=== PATIENT | male | born 1930 | race Hispanic/Latino ===

== ENCOUNTER 2017-04-14 09:20 | Outpatient (CLI) | payer MEDICARE ==
[2017-04-14 12:32] LABS: #Basophils 0.1 thou/uL (0.0-0.2); #Eosinphils 0.2 thou/uL (0.0-0.7); #Lymphocytes 1.2 thou/uL (1.20-3.40); #Monocytes 0.6 thou/uL (0.11-0.59); #Neutrophils 4.5 thou/uL (1.40-6.50); %Basophils 1.3 % (0.0-1.0); %Eosinophils 3.6 % (0.0-10.0); %Lymphocytes 17.8 % (21.0-51.0); %Monocytes 8.4 % (0.0-10.0); %Neutrophils 68.9 % (42.0-75.0); Hemoglobin 13.8 g/dL (14.0-18.0); Mean Corpuscular HGB CONC 33.8 g/dL (32.0-36.0); Mean Corpuscular Hemoglobin 32.5 pg (27.0-31.0); Mean Corpuscular Volume 96.4 fl (80.0-94.0); Mean Platelet Volume 9.3 fL (7.4-10.4); Platelet Count 144 thou/uL (130-400); RBC Distribution Width 12.6 % (11.5-14.5); Red Blood Cell (RBC) Count 4.25 mill/uL (4.70-6.10); White Blood Cell (WBC) Count 6.5 thou/uL (4.8-10.8)
[2017-04-14 13:03] LABS: ALT (SGPT) 15 U/L (8-55); AST (SGOT) 26 U/L (5-34); Albumin 3.4 g/dL (3.4-4.8); Alkaline Phosphatase 112 U/L (40-150); Anion Gap 15 mmol/L (10-20); BUN (Urea Nitrogen) 12 mg/dL (8.4-25.7); Bilirubin, Direct 0.2 mg/dL (0.1-0.3); Bilirubin, Total 0.4 mg/dL (0.2-1.2); Calc. Creatinine Clearance 0 mL/min (70-130); Calcium 8.4 mg/dL (7.8-10.44); Carbon Dioxide 24 mmol/L (23-31); Cardiac Risk 2.8 (Less than 4.5); Chloride 107 mmol/L (98-107); Cholesterol 132 mg/dl (< 200 Desired); Estimated GFR-MDRD 79; Glucose 89 mg/dL (83-110); HDL Cholesterol 47 mg/dL (>60 Neg Risk); LDL Cholesterol, Calculated 70 mg/dL; Potassium 3.6 mmol/L (3.5-5.1); Protein, Total 6.8 g/dL (5.8-8.1); Sodium 142 mmol/L (136-145); Triglycerides 74 mg/dL (Less than 150)
[2017-04-14 13:33] LABS: Hemoglobin A1c 5.6 % (4.0-6.0)
== END 2017-04-14 09:21 | disposition home or self-care (01) ==
LOC: NAVSJIPCSP 09:20
PROVIDERS: ATTEND Family Medicine
DX: E78.4 Other hyperlipidemia (principal); E11.9 Type 2 diabetes mellitus without complications; I10 Essential (primary) hypertension; Z79.899 Other long term (current) drug therapy
CPT/HCPCS: 36415; 80048; 80061; 80076; 83036; 84443; 85025

== ENCOUNTER 2018-09-07 21:44 | Inpatient (IN) | payer MEDICARE ==
[2018-09-07 22:00] VITALS: BMI 28.2
[2018-09-07] MEDS: Benzonatate 100 MG CAP PO PRN (23:24)
[2018-09-07] MEDS: Acetaminophen 325 MG TAB PO PRN (23:25)
[2018-09-08 05:23] LABS: #Basophils 0.1 thou/uL (0.0-0.2); #Eosinphils 0.3 thou/uL (0.0-0.7); #Lymphocytes 1.3 thou/uL (1.20-3.40); #Monocytes 0.6 thou/uL (0.11-0.59); #Neutrophils 3.5 thou/uL (1.40-6.50); %Basophils 1.6 % (0.0-1.0); %Eosinophils 4.8 % (0.0-10.0); %Lymphocytes 22.4 % (21.0-51.0); %Monocytes 10.4 % (0.0-10.0); %Neutrophils 60.8 % (42.0-75.0); Hemoglobin 11.6 g/dL (14.0-18.0); Mean Corpuscular HGB CONC 32.3 g/dL (32.0-36.0); Mean Corpuscular Hemoglobin 32.5 pg (27.0-31.0); Mean Platelet Volume 8.3 fL (7.4-10.4); Platelet Count 161 thou/uL (130-400); RBC Distribution Width 13.2 % (11.5-14.5); Red Blood Cell (RBC) Count 3.55 mill/uL (4.70-6.10); White Blood Cell (WBC) Count 5.8 thou/uL (4.8-10.8)
[2018-09-08 05:38] LABS: ALT (SGPT) 13 U/L (8-55); AST (SGOT) 21 U/L (5-34); Albumin 2.5 g/dL (3.4-4.8); Alkaline Phosphatase 78 U/L (40-150); Anion Gap 8 mmol/L (10-20); BUN (Urea Nitrogen) 13 mg/dL (8.4-25.7); Bilirubin, Total 0.5 mg/dL (0.2-1.2); Calc. Creatinine Clearance 60 mL/min (70-130); Calcium 8.3 mg/dL (7.8-10.44); Carbon Dioxide 25 mmol/L (23-31); Chloride 111 mmol/L (98-107); Estimated GFR-MDRD 69; Glucose 93 mg/dL (83-110); Potassium 3.5 mmol/L (3.5-5.1); Protein, Total 5.5 g/dL (5.8-8.1); Sodium 140 mmol/L (136-145)
[2018-09-08] MEDS ORDERED: guaiFENesin/DM ER PO SCH ×2 (09:00)
[2018-09-08] MEDS: Lisinopril 10 MG TAB PO SCH (09:02)
[2018-09-08] MEDS: NIFEdipine XL 30 MG TAB PO SCH (09:03)
[2018-09-08] MEDS: Ipratropium Bromide 0.06% Nasal Inhaler 15ml EA NARE SCH ×4 (10:43→21:05)
[2018-09-08] MEDS: Benzonatate 100 MG CAP PO PRN (10:44)
--- NOTE | 2018-09-08 13:22 | HP ---
DATE OF ADMISSION: 09/07/2018 HISTORY OF PRESENT ILLNESS: Mr. Zarate is an 88-year-old white male that presented to [facility] with right-sided weakness suspicious for a stroke. The patient had CTs and MRIs which w ere basically revealed multiple small hemorrhagic strokes in the distant past, but also a new small a cute basal ganglion and lateral thalamic bleed. He also has a history of hypertension which was sign ificantly elevated, most likely because of noncompliance with medications. He also has hyperlipidemi a. He was brought to the hospital, admitted and stabilized. He was started on nifedipine 60 mg dinorah y with the intention to keep his systolic blood pressure 160s or below. He is also started on statin drug. It is noted that he was on 2 drug blood pressure therapy, statin drug and Namenda for my offi ce back in April, but at that time, he has been off all of his medicines for at least 3 weeks because he is very noncompliant. Eventually stabilized and felt that he would benefit from inpatient PT and OT, so he was therefore transferred to [facility] for PT/OT to increase his strength and stamina. PAST MEDICAL HISTORY: Positive for: 1. Hypertension. 2. Hyperlipidemia. 3. Stroke x4 in 2012. 4. Brain aneurysm x2. 5. Dementia. 6. Osteoarthritis. 7. Diabetes mellitus. PAST SURGICAL HISTORY: Positive for cataract surgery. FAMILY HISTORY: Reveals patient's father at age 80 of brain cancer diagnosed with a stroke. Villa tubbs's mother at age 80 with pancreatic cancer and diagnosed with diabetes. Patient has deceas ed brother who with liver cancer and also had diabetes. Patient has 2 sons and 1 daughter that are healthy. Patient does not smoke. Patient does not drink coffee, but occasionally ice tea and sodas. SOCIAL HISTORY: Patient retired and . The patient lives with his spouse. ALLERGIES: The patient is allergic to SULFA. PAST SURGICAL HISTORY: He has had strokes in 2008, 2009. 2011 and 2015. He had a brain tumor 2009. REVIEW OF SYSTEMS: The patient denies fever or chills. He complains of fatigue. Denies any headach e. Denies any change in his eyes or hearing. Patient denies any respiratory problems except occasional cough. Patient denies chest pain, orthopnea, or claudication. Patient denies hematochezia, change in bowel habit emesis, black or bloody tarry stools. Patient den ies nocturia, urgency, frequency. Patient denies symptoms. PHYSICAL EXAMINATION: GENERAL: This is a well-developed, well-nourished, somewhat obese white male in no apparent distress at this time. HEENT: Reveals normocephalic, nontraumatic cranium. Pupils are equally round. Extraocular movement s are intact. Nose and throat are slightly dry, but clear. NECK: Supple, without masses, nodes or bruits. CHEST: Clear to auscultation. No rales, no rhonchi, no wheezes are heard. HEART: Reveals a regular rate and rhythm without murmurs, gallops or rubs. ABDOMEN: Obese, soft, nontender, without organomegaly, normal bowel sounds are noted in all 4 quadra nts. No rebound or guarding is noted. : Deferred. EXTREMITIES: Reveal no clubbing, cyanosis or edema. NEUROLOGIC: The patient has fairly good reflexes bilateral. His upper body strength and lower body strength are fair. He has more generalized weakness. PRESENT MEDICATIONS: 1. Tylenol 650 p.r.n. 2. Ipratropium/Atrovent nasal spray 2 sprays each nostril t.i.d. 3. Tessalon Perles 200 mg t.i.d. p.r.n. cough. 4. Lisinopril 10 mg daily. 5. Pravastatin 80 mg daily. 6. Nifedipine 60 mg daily. 7. Guaifenesin DM ER q.12h. ASSESSMENT: 1. Status post stroke. 2. History of multiple strokes and transient ischemic attacks in the past. 3. Hypertension, out of control, most likely due to noncompliance with the patient last seen in [facility] in April and not been taking his medicines for 3 weeks. 4. Diabetes, diet and exercise controlled. 5. Hyperlipidemia. The patient is supposed to be on pravastatin. 6. Osteoarthritis, mainly of both knees. 7. Allergic rhinitis. The patient is presently on Flonase. 8. Generalized arthritis. The patient is on Meloxicam 15 mg daily. 9. Memory loss. The patient has early dementia, but is not taking his Namenda. 10. Mild cognitive impairment. The patient has prior clock scanned into the office. He has stopped his Aricept and Namenda in the past. 11. Insomnia. The patient takes melatonin 10 mg. PLAN: 1. The patient is admitted to [facility] for physical therapy, occupational therapy to increase his strength and stamina. 2. We will continue his present medications. 3. We will encourage him and his family to get some type of mechanism in order, so he does not miss any of his medicines. I did recommend that in moving with someone or someone moving with him to give his medications twice a day. Otherwise, patient seems to be doing well and has no apparent distress at this time.
[2018-09-08] MEDS: Acetaminophen 325 MG TAB PO PRN (21:05)
[2018-09-08] MEDS: guaiFENesin ER 600 MG TAB PO SCH (21:05)
[2018-09-08] MEDS: Atorvastatin Calcium 20 MG TAB PO SCH (21:05)
[2018-09-09] MEDS: Ipratropium Bromide 0.06% Nasal Inhaler 15ml EA NARE SCH ×3 (09:09→20:32)
[2018-09-09] MEDS: guaiFENesin ER 600 MG TAB PO SCH ×2 (09:10→20:33)
[2018-09-09] MEDS: Lisinopril 10 MG TAB PO SCH (09:11)
[2018-09-09] MEDS: NIFEdipine XL 30 MG TAB PO SCH (09:12)
[2018-09-09] MEDS: Benzonatate 100 MG CAP PO PRN (14:45)
[2018-09-09] MEDS: Chloraseptic Spray 180 ml Bottle PO PRN (16:03)
--- NOTE | 2018-09-09 16:13 | PRG ---
DATE OF SERVICE: 09/09/2018 SUBJECTIVE: Mr. Zarate is doing well. He does have some dysphasia. He is also having some sore th roat and cough. His family is in the room. OBJECTIVE: VITAL SIGNS: He is afebrile, heart rate is 77, respirations 18, oxygen saturation 96% on room air, b lood pressure 127/60. CARDIOVASCULAR: S1, S2 plus. RESPIRATORY: Normal vesicular breath sounds. ABDOMEN: Soft, nontender, bowel sounds heard in all quadrants. EXTREMITIES: Without cyanosis or clubbing. CENTRAL NERVOUS SYSTEM: Improving deficits from his recent CVA. IMPRESSION: 1. Hypertension. He has a longstanding history of noncompliance. 2. Dyslipidemia. 3. Multiple cerebrovascular accidents. 4. Dementia. 5. Osteoarthritis. PLAN: 1. Start him on some melatonin for insomnia. 2. Cepacol spray for his sore throat. 3. Continue current medications. 4. Continue PT, OT evaluate and treat. 5. DVT and stress ulcer prophylaxis. 6. Decubitus precautions. 7. Discussed with patient and family in detail and all questions answered.
[2018-09-09] MEDS: Acetaminophen 325 MG TAB PO PRN (19:18)
[2018-09-09] MEDS: Atorvastatin Calcium 20 MG TAB PO SCH (20:33)
[2018-09-09] MEDS: Melatonin 3 MG TAB PO PRN (20:33)
[2018-09-10] MEDS: Acetaminophen 325 MG TAB PO PRN ×4 (03:45→20:31)
[2018-09-10] MEDS: NIFEdipine XL 30 MG TAB PO SCH (08:21)
[2018-09-10] MEDS: Ipratropium Bromide 0.06% Nasal Inhaler 15ml EA NARE SCH ×3 (08:21→20:28)
[2018-09-10] MEDS: Lisinopril 10 MG TAB PO SCH (08:22)
[2018-09-10] MEDS: guaiFENesin ER 600 MG TAB PO SCH ×2 (08:22→20:30)
[2018-09-10] MEDS: Benzonatate 100 MG CAP PO PRN (12:25)
--- NOTE | 2018-09-10 15:30 | PRG ---
DATE OF SERVICE: 09/10/2018 SUBJECTIVE: Mr. Zarate is sleeping but arousable. He apparently is having some back pain and he mccann s been using this Icy Hot rub. Continues to have some mild . OBJECTIVE: VITAL SIGNS: He is afebrile, heart rate 86, respirations 18, blood pressure 143/65. CARDIOVASCULAR: S1, S2 plus. RESPIRATORY SYSTEM: Normal vesicular breath sounds. ABDOMEN: Soft, nontender, bowel sounds heard in all quadrants. EXTREMITIES: Without cyanosis or clubbing. CENTRAL NERVOUS SYSTEM: Deficits from his recent CVA. IMPRESSION: 1. Diabetes mellitus, apparently diet controlled. 2. Hypertension. Would favor permissive hypertension given his new cerebrovascular accident. 3. Dyslipidemia. 4. History of multiple cerebrovascular accidents. 5. Dementia. 6. Osteoarthritis. 7. Longstanding history of noncompliance. PLAN: 1. Okay to use his own Icy Hot. 2. Continue current medications. 3. PT, OT, and Speech to evaluate and treat. 4. DVT and stress ulcer prophylaxis. 5. Decubitus precautions. 6. Monitor laboratory values. 7. Nutritional support.
[2018-09-10] MEDS: Melatonin 3 MG TAB PO PRN (20:30)
[2018-09-10] MEDS: Atorvastatin Calcium 20 MG TAB PO SCH (20:30)
[2018-09-11] MEDS: Ipratropium Bromide 0.06% Nasal Inhaler 15ml EA NARE SCH ×3 (08:14→20:31)
[2018-09-11] MEDS: guaiFENesin ER 600 MG TAB PO SCH ×2 (08:15→20:32)
[2018-09-11] MEDS: NIFEdipine XL 30 MG TAB PO SCH (08:15)
[2018-09-11] MEDS: Lisinopril 10 MG TAB PO SCH (08:25)
--- NOTE | 2018-09-11 11:52 | PRG ---
DATE OF SERVICE: 09/11/2018 HISTORY OF PRESENT ILLNESS: Mr. Borden is a very pleasant 88-year-old male that presented to emergency room with right-sided weakness suspicion for stroke. He had a CT and MRI which basicall y revealed multiple small hemorrhagic strokes. He can count a total of 5 strokes, but this has been the worse so far. This has effected the basal ganglia and lateral thalamic bleed. He also has a his tory of hypertension and has been noncompliant with medication. He was brought to emergency room, st abilized and started on nifedipine 60 mg with intention keep his systolic blood pressure 160s or belo w. He was also started on a statin drug. He is on Namenda. Unfortunately, he has been off of his m edicine for at least 3 weeks because he is very noncompliant. The patient's son is in the room, we did definitely tell him that his dad should never drive again be cause he has had 5 strokes. He may have a stroke while he is driving and hurt himself or hurt someon e else. The son said they can take care of that problem. PHYSICAL EXAMINATION: VITAL SIGNS: Today reveal blood pressure 140/68, pulse 79-85, respirations 16-20, O2 sat 93-96% on r oom air, T-max 98.3. GENERAL: This is a well-developed, well-nourished, very pleasant, slightly obese male in no apparent distress at this time. HEENT: Reveals normocephalic, nontraumatic cranium. The pupils are equally round and reactive. Ext raocular movements are intact. Nose and throat are slightly dry, but clear. NECK: Supple, without mass, nodes or bruits. CHEST: Clear to auscultation. No rales, rhonchi or wheezes are heard. CARDIOVASCULAR: Reveals a regular rate and rhythm without murmurs, gallops or rubs. ABDOMEN: Obese, soft, nontender, without organomegaly, normal bowel sounds are noted in all 4 quadra nts. No rebound or guarding is noted. : Deferred. EXTREMITIES: Reveal no clubbing, cyanosis or edema. NEUROLOGIC: The patient is oriented to person, place and time. His speech is somewhat slurred. IMPRESSION: 1. Status post stroke (this is his 5th stroke). 2. Hypertension, out of control, much improved now. 3. Diabetes, diet and exercise controlled. 4. Hyperlipidemia. 5. Osteoarthritis, both knees. 6. Allergic rhinitis. 7. Generalized arthritis. 8. Memory loss with early dementia. The patient is not taking his Namenda. 9. Mild cognitive impairment secondary to his dementia. 10. Insomnia. 11. Generalized weakness. PLAN: 1. The patient was admitted to [facility] for physical therapy, occupational therapy , and speech therapy. 2. Continue present medications. 3. Continue to monitor the patient's blood pressure, keep it less than 160 systolic. 4. Continue to monitor the patient's sugars. 5. Stress ulcer prophylaxis. 6. Decubitus precautions. 7. Deep venous thrombosis prophylaxis per primary service. 8. Physical therapy and occupational therapy, and speech therapy.
[2018-09-11] MEDS: Chloraseptic Spray 180 ml Bottle PO PRN (15:01)
[2018-09-11] MEDS: Acetaminophen 325 MG TAB PO PRN (15:03)
[2018-09-11] MEDS: Benzonatate 100 MG CAP PO PRN (15:04)
[2018-09-11] MEDS: Atorvastatin Calcium 20 MG TAB PO SCH (20:32)
[2018-09-11] MEDS: Melatonin 3 MG TAB PO PRN (20:33)
[2018-09-12] MEDS: NIFEdipine XL 30 MG TAB PO SCH (09:18)
[2018-09-12] MEDS: guaiFENesin ER 600 MG TAB PO SCH ×2 (09:18→20:25)
[2018-09-12] MEDS: Lisinopril 10 MG TAB PO SCH (09:18)
[2018-09-12] MEDS: Ipratropium Bromide 0.06% Nasal Inhaler 15ml EA NARE SCH ×3 (09:18→20:24)
[2018-09-12] MEDS ORDERED: Milk Of Magnesia 30 ML UDCUP PO PRN (10:20)
[2018-09-12] MEDS: Milk Of Magnesia 30 ML UDCUP PO PRN (11:45)
[2018-09-12] MEDS: Benzonatate 100 MG CAP PO PRN (11:45)
--- NOTE | 2018-09-12 14:03 | PRG ---
DATE OF SERVICE: 09/12/2018 SUBJECTIVE: Mr. Zarate is a very pleasant 88-year-old male that presented to the emergency room with right-sided weakness suspicious for stroke. He had a CT and MRI, which confirmed that. Nikhil al has multiple small hemorrhagic strokes and the stroke was basically at the basal ganglia and latera l thalamic area. He also has a history of hypertension and has been noncompliant with medication. T he last time I saw him several months ago, he had not taken his blood pressure medications for over 3 weeks. He was brought to the emergency room, he was hypertensive and he was started on nifedipine w ith intention of keeping his systolic blood pressure less than 160s. He also started on statin drug. Unfortunately, he has been off his medications again for about 3 weeks before he had a stroke. The patient's daughter is in the room this morning and yesterday, I spoke with the son. She was conc erned because he has had 5 strokes and my recommendation was that he not drive anymore. 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 The daughter was very concerned because she said that wo uld like stab him in the heart. I just told her that it does not necessarily have to be a problem wi th taking his license away, he can still keep that as his ID, but we just do not need him driving. Nikhil al states he had 5 strokes. He can have a stroke and danger his life or someone else's . LABORATORY: No labs were done today. OBJECTIVE: VITAL SIGNS: This morning reveal blood pressure 142/67, pulse 85, respirations 18, O2 sat 94% on quang m air, T-max 97.4. GENERAL: This is a well-developed, well-nourished, somewhat obese male in no apparent distr ess at this time. HEENT: Reveals normocephalic, nontraumatic cranium. The pupils are equally round, reactive. The ex traocular movements intact. Nose and throat are slightly dry, but clear. NECK: Supple, without mass, nodes or bruits. LUNGS: Chest is clear to auscultation. No rales, rhonchi, wheezes or cough is heard. CARDIOVASCULAR: Reveals a regular rate and rhythm without murmurs, gallops or rubs. ABDOMEN: Obese, soft, nontender, without organomegaly. Normal bowel sounds are noted in all 4 quadr ants. No rebound or guarding is noted. GENITOURINARY: Deferred at this time. EXTREMITIES: Reveal no clubbing, cyanosis or edema. NEUROLOGIC: The patient is oriented to person, place, and time. His speech is slowly improving. He states he is very tired and sleepy today, but his daughter states he slept well all last night. IMPRESSION: 1. Status post stroke and this is his fifth stroke. 2. Hypertension, out of control, but much improved since he is back on his medications. 3. Diabetes, which is diet and exercise control which is stable. 4. Hyperlipidemia. 5. Osteoarthritis of both knees. 6. Allergic rhinitis. 7. Memory loss with early dementia. The patient is again not been taking his Namenda. 8. Mild cognitive impairment secondary to dementia. 9. Insomnia. 10. Generalized weakness. PLAN: 1. The patient was transferred to [facility] for physical therapy, heliotherapist apy, and speech therapy, which he is participating in fairly well. 2. Continue his present medications. 3. Continue to monitor his blood pressure closely and keep a systolic less than 160. 4. Continue to monitor the patient's blood sugars, which have been good. 5. Stress ulcer prophylaxis. 6. Decubitus precautions. 7. Deep venous thrombosis prophylaxis. 8. Continue PT, OT, and speech therapy.
[2018-09-12] MEDS: Atorvastatin Calcium 20 MG TAB PO SCH (20:25)
[2018-09-12] MEDS: Melatonin 3 MG TAB PO PRN (23:06)
[2018-09-13] MEDS: Ipratropium Bromide 0.06% Nasal Inhaler 15ml EA NARE SCH ×3 (08:26→20:31)
[2018-09-13] MEDS: Polyethylene Glycol 3350 17 GM Packet PO SCH (08:26)
[2018-09-13] MEDS: NIFEdipine XL 30 MG TAB PO SCH (08:27)
[2018-09-13] MEDS: guaiFENesin ER 600 MG TAB PO SCH ×2 (08:28→20:32)
[2018-09-13] MEDS: Lisinopril 10 MG TAB PO SCH (08:28)
[2018-09-13] MEDS ORDERED: Melatonin 3 MG TAB PO PRN (09:46)
--- NOTE | 2018-09-13 10:30 | PRG ---
DATE OF SERVICE: 09/13/2018 DATE OF ADMISSION: 09/07/2018 HISTORY OF PRESENT ILLNESS: Mr. Zarate is a very pleasant 88-year-old male that presented to the emergency room with a stroke. It was noted to be hemorrhagic stroke that got his basal gangli a in the lateral thalamic area. He was stabilized and eventually transferred to [facility] for PT and OT. His daughter is in the room stating he did not sleep well last night, because he did not get his medi cation early enough. It also was not very strong. LABORATORY DATA: No labs were done today. PHYSICAL EXAMINATION: VITAL SIGNS: Revealed blood pressure this morning 132/63, pulse 78-85, respirations 18-19, O2 sat 93 %-95%, T-max 98.6. GENERAL: This is a well-developed, well-nourished, very pleasant, obese male in no apparent distress at this time. HEENT: Reveals normocephalic, nontraumatic cranium. Pupils are equally round. Nose and throat are dry. NECK: Supple, without mass, nodes, or bruits. CHEST: Clear to auscultation. No rales, rhonchi, or wheezes are heard. No cough is noted. HEART: Reveals a regular rate and rhythm without murmurs, gallops, or rubs. ABDOMEN: Soft, nontender, without organomegaly, normal bowel sounds are noted. No rebound or guardi ng is noted. EXAM: Deferred. EXTREMITIES: Reveal no clubbing, cyanosis, or edema. NEUROLOGIC: Patient is oriented to person, place, and time. Speech still is slow. IMPRESSION: 1. Status post stroke. 2. Hypertension, much improved. 3. Diabetes, stable. 4. Hyperlipidemia. 5. Osteoarthritis. 6. Allergic rhinitis. 7. Memory loss with early dementia. 8. Mild cognitive impairment. 9. Insomnia. 10. Generalized weakness. PLAN: 1. Transfer the patient to [facility] for PT and OT and speech therapy. He is participating fairly well. 2. Continue present medications. 3. Increase melatonin if needed. 4. Monitor the patient's blood pressure. 5. Monitor the patient's blood sugars. 6. Stress ulcer prophylaxis. 7. Decubitus precautions. 8. Deep venous thrombosis prophylaxis. 9. Continue PT and OT and speech therapy.
[2018-09-13] MEDS: Benzonatate 100 MG CAP PO PRN (19:07)
[2018-09-13] MEDS: Atorvastatin Calcium 20 MG TAB PO SCH (20:32)
[2018-09-13] MEDS: Acetaminophen 325 MG TAB PO PRN (20:32)
[2018-09-14] MEDS: Polyethylene Glycol 3350 17 GM Packet PO SCH (08:21)
[2018-09-14] MEDS: Lisinopril 10 MG TAB PO SCH (08:21)
[2018-09-14] MEDS: NIFEdipine XL 30 MG TAB PO SCH (08:21)
[2018-09-14] MEDS: Ipratropium Bromide 0.06% Nasal Inhaler 15ml EA NARE SCH ×3 (08:21→20:48)
[2018-09-14] MEDS: guaiFENesin ER 600 MG TAB PO SCH ×2 (08:22→20:49)
[2018-09-14] MEDS: Acetaminophen 325 MG TAB PO PRN ×2 (09:21→20:49)
[2018-09-14] MEDS: Chloraseptic Spray 180 ml Bottle PO PRN (09:21)
[2018-09-14] MEDS: Atorvastatin Calcium 20 MG TAB PO SCH (20:49)
[2018-09-15] MEDS: Acetaminophen 325 MG TAB PO PRN (01:18)
[2018-09-15] MEDS: Ipratropium Bromide 0.06% Nasal Inhaler 15ml EA NARE SCH ×3 (08:36→20:58)
[2018-09-15] MEDS: NIFEdipine XL 30 MG TAB PO SCH (08:36)
[2018-09-15] MEDS: guaiFENesin ER 600 MG TAB PO SCH ×2 (08:37→20:57)
[2018-09-15] MEDS: Lisinopril 20 MG TAB PO SCH (08:38)
[2018-09-15] MEDS: Polyethylene Glycol 3350 17 GM Packet PO SCH (08:41)
--- NOTE | 2018-09-15 18:54 | PRG ---
DATE OF SERVICE: 09/14/2018 DATE OF ADMISSION: 09/07/2018 HISTORY OF PRESENT ILLNESS: Mr. Zarate is a very pleasant 88-year-old male that presented to emergency room with a stroke. It was noted to be hemorrhagic stroke that was in his basal ganglia and the lateral thalamic area. Eventually was stabilized and then he was transferred to [facility] where he could receive physical therapy and occupational therapy, and speech therapy. Patient's daughter was in the room. Again, I did answer all of her questions. PHYSICAL EXAMINATION: VITAL SIGNS: Today reveal blood pressure was 152/67, pulse 81, respirations 18, O2 sat 95%-97% on ro om air, T-max 97.7. GENERAL: This is a well-developed, well-nourished, very pleasant white male in no apparent distress at this time. HEENT: Reveals normocephalic, nontraumatic cranium. Pupils equal, round, and reactive. Nose and th roat are moist today. NECK: Supple, without mass, nodes, bruits. CHEST: Clear to auscultation. No rales, rhonchi, wheezes or cough is heard. CARDIOVASCULAR: Reveals a regular rate and rhythm without murmurs, gallops or rubs. ABDOMEN: Obese, soft, nontender, without organomegaly. Normal bowel sounds are noted in all 4 quadr ants. No rebound or guarding is noted. GENITOURINARY: Deferred. EXTREMITIES: Reveal no clubbing, cyanosis or edema. NEUROLOGIC: The patient is oriented to person, place, and time. IMPRESSION: 1. Status post cerebrovascular accident. 2. Hypertension. 3. Diabetes. 4. Hyperlipidemia. 5. Osteoarthritis. 6. Allergic rhinitis. 7. Early dementia with memory loss. 8. Mild cognitive impairment. 9. Insomnia. 10. Generalized weakness. PLAN: 1. Continue speech therapy. 2. Continue physical therapy and occupational therapy. 3. Continue present meds. 4. Patient wanted his melatonin stops, we stopped. 5. Monitor the patient's blood pressure. 6. Continue to monitor the patient diabetes with Accu-Cheks a.c. and at bedtime. 7. Moderate the patient's stress ulcer prophylaxis. 8. Decubitus precautions. 9. DVT prophylaxis. 10. The patient to be discharged most likely next Tuesday.
--- NOTE | 2018-09-15 19:28 | PRG ---
DATE OF SERVICE: 09/15/2018 DATE OF ADMISSION: 09/07/2018 HISTORY OF PRESENT ILLNESS: The patient is an 88-year-old male that unfortunately was broug ht to the emergency room and found to have a basal ganglia and lateral flap thalamic stroke. He was stabilized at [facility], eventually transferred to [facility] in [facility] or physical therapy and occupational therapy. The patient's is in room today and states he is doing well. The only thing she is concerned abo ut is occasional swelling in his legs. I did talk to the patient's son this morning at [facility]. His son prefers outpatient physical therapy at the [facility] area. If that is what they want then they will not qualify for the home health to come by their house. PHYSICAL EXAMINATION: VITAL SIGNS: Blood pressure this morning 152/67, pulse 81, respirations 18, O2 sat 95%-97% on room a ir, T-max 97.7. GENERAL: This is a well-developed, well-nourished, morbidly obese male in no apparent distr ess at this time. HEENT: Reveals normocephalic, nontraumatic cranium. The pupils are equally round and reactive. Ext raocular movements intact. Nose and throat are moist again today. NECK: Supple, without masses, nodes or bruits. No jugular venous distention is noted today. LUNGS: Chest is clear to auscultation. No rales, no rhonchi, no wheezes are heard. No cough is not ed. HEART: Reveals a regular rate and rhythm without murmurs, gallops or rubs. ABDOMEN: Soft, nontender, without organomegaly. Normal bowel sounds are noted in all 4 quadrants. No rebound or guarding is noted. GENITOURINARY: Deferred. EXTREMITIES: Reveal no clubbing, cyanosis with only trace edema at this time. NEUROLOGIC: The patient oriented to person, place, time, and is actually speech is much improved ove r the last 2 days. IMPRESSION: 1. Status post cerebrovascular accident of the basal and lateral thalamic area. 2. Hypertension. 3. Diabetes. 4. Hyperlipidemia. 5. Osteoarthritis. 6. Allergic rhinitis. 7. Early dementia with memory loss. 8. Mild cognitive impairment. 9. Insomnia. 10. Generalized weakness. PLAN: 1. Continue present medications. 2. Melatonin will be restarted since the family is asking for that tonight and we will start him on 12 mg. 3. Continue to monitor the patient's blood pressure. 4. Continue to monitor the patient's blood sugars. 5. Stress ulcer prophylaxis. 6. Decubitus precautions. 7. Continue physical therapy and occupational therapy and speech therapy.
[2018-09-15] MEDS: Melatonin 3 MG TAB PO PRN (20:57)
[2018-09-15] MEDS: Atorvastatin Calcium 20 MG TAB PO SCH (20:57)
--- NOTE | 2018-09-16 08:44 | PRG ---
DATE OF SERVICE: 09/16/2018 DATE OF ADMISSION: 09/07/2018 SUBJECTIVE: Mr. Zarate is a well-developed, well-nourished 88-year-old male who was vickie t to the emergency room and found to have a basal ganglia and left lateral thalamic stroke. He was a dmitted to the stroke unit. Eventually stabilized and transferred to [place] for continued physic al therapy and occupational therapy. The patient's daughter is in the room when he seems to be doing very well, his discharge date is . I did talk with the patient's son yesterday and they are trying to decide between home health an d outpatient physical therapy. His opinion was that physical therapy would do a little better becaus e they could get him out of the house and after he finished therapy in 4-6 weeks, [facility] could [facility] to [facility]. OBJECTIVE: VITAL SIGNS: Today reveal blood pressure last night 150/67, pulse 87-90, respirations 18, O2 saturat ion 98% on room air, T-max 96.5. GENERAL: This is a well-developed, well-nourished, slightly obese male, presently sleeping, aroused, states he is doing fine and has no complaints. HEENT: Reveals normocephalic, nontraumatic cranium. Nose and throat are slightly dry. NECK: Supple, without mass, nodes or bruits. LUNGS: Chest is clear to auscultation. No rales, rhonchi, wheezes or cough is heard. CARDIOVASCULAR: Heart reveals a regular rate and rhythm without murmurs, gallops or rubs. ABDOMEN: Obese, soft, nontender, without organomegaly. Normal bowel sounds are noted. No rebound o r guarding is noted. : Deferred. EXTREMITIES: Reveal no clubbing, cyanosis, still with only trace edema occasionally that comes and g oes. NEUROLOGIC: The patient is oriented to person, place and time. Speech is slowly better. IMPRESSION: 1. Status post cerebrovascular accident with basal ganglion and lateral thalamic area infarcts. 2. Hypertension. 3. Diabetes, type 2, controlled on diet and exercise. 4. Hyperlipidemia. 5. Osteoarthritis. 6. Allergic rhinitis. 7. Early dementia with recent memory loss. 8. Mild cognitive impairment. 9. Insomnia. 10. Generalized weakness. PLAN: 1. The patient was started on melatonin again last night, seems to be doing well with that. 2. Continue to monitor the patient's blood pressure closely. 3. Continue to monitor the patient's diabetes with Accu-Cheks randomly. 4. Stress ulcer prophylaxis. 5. Decubitus precautions. 6. Continue physical therapy and occupational therapy. 7. Continue speech therapy.
[2018-09-16] MEDS: Lisinopril 20 MG TAB PO SCH (09:32)
[2018-09-16] MEDS: Ipratropium Bromide 0.06% Nasal Inhaler 15ml EA NARE SCH ×3 (09:32→20:32)
[2018-09-16] MEDS: Polyethylene Glycol 3350 17 GM Packet PO SCH (09:32)
[2018-09-16] MEDS: Benzonatate 100 MG CAP PO PRN (09:32)
[2018-09-16] MEDS: guaiFENesin ER 600 MG TAB PO SCH ×2 (09:33→20:33)
[2018-09-16] MEDS: NIFEdipine XL 30 MG TAB PO SCH (09:33)
[2018-09-16] MEDS: Chloraseptic Spray 180 ml Bottle PO PRN (14:43)
[2018-09-16] MEDS: Melatonin 3 MG TAB PO PRN (20:33)
[2018-09-16] MEDS: Atorvastatin Calcium 20 MG TAB PO SCH (20:33)
--- NOTE | 2018-09-17 06:58 | PRG ---
DATE OF SERVICE: 09/17/2018. SUBJECTIVE: Mr. Zarate is a very pleasant 88-year-old male that was found to have a stroke when he was brought to the emergency room. The stroke was at basal ganglia and the left lateral elisabeth lamic stroke. He was admitted to the stroke unit, eventually stabilized and was now transferred to [facility] for physical therapy and occupational therapy. The patient states he is doing well today. While I was in the room, he did get up by himself and go to the bathroom without his walker. He gradually is getting stronger and his balance is much improve d. He is scheduled to be discharged on Tuesday. OBJECTIVE: VITAL SIGNS: Today reveal blood pressure 155/67, pulse 88-91, respirations 20, O2 sat 95% on room ai r, T-max 97.3. GENERAL: This is a well-developed, well-nourished, slightly obese male in no apparent distr ess at this time. HEENT: Reveals normocephalic, nontraumatic cranium. Pupils equal, round, and reactive. Extraocular movements intact. Nose and throat are slightly dry. NECK: Supple, without mass, nodes or bruits. LUNGS: Chest is clear to auscultation. No rales, rhonchi or wheezes are noted. No cough is noted. HEART: Reveals a regular rate and rhythm. No murmurs, gallops or rubs are noted. ABDOMEN: Soft, nontender, without organomegaly, normal bowel sounds are noted. No rebound or guardi ng is noted. GENITOURINARY: Deferred. EXTREMITIES: Reveal no clubbing, cyanosis with trace edema. Edema is noted to be equal and bilatera l. NEUROLOGIC: The patient is oriented to person, place and time. His speech continues to slowly get b june. He has no complaints this morning. IMPRESSION: 1. 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 2. Hypertension. 3. Diabetes type 2, controlled on diet and exercise. 4. Hyperlipidemia. 5. Osteoarthritis. 6. Early dementia with recent memory loss. 7. Allergic rhinitis. 8. Mild cognitive impairment. 9. Insomnia. 10. Generalized weakness. PLAN: 1. Continue melatonin as needed p.r.n. 2. Continue to monitor the patient's blood pressure closely. 3. Continue to monitor the patient's diabetes with Accu-Cheks randomly. 4. Stress ulcer prophylaxis. 5. Decubitus precautions. 6. Continue physical therapy and occupational therapy. 7. Continue speech therapy. 8. Plan to discharge on Tuesday.
[2018-09-17] MEDS: Ipratropium Bromide 0.06% Nasal Inhaler 15ml EA NARE SCH ×3 (08:55→20:28)
[2018-09-17] MEDS: Polyethylene Glycol 3350 17 GM Packet PO SCH (08:55)
[2018-09-17] MEDS: guaiFENesin ER 600 MG TAB PO SCH ×2 (08:56→20:28)
[2018-09-17] MEDS: NIFEdipine XL 30 MG TAB PO SCH (08:56)
[2018-09-17] MEDS: Milk Of Magnesia 30 ML UDCUP PO PRN (08:56)
[2018-09-17] MEDS: Benzonatate 100 MG CAP PO PRN (08:56)
[2018-09-17] MEDS: Lisinopril 20 MG TAB PO SCH (08:56)
[2018-09-17] MEDS: Atorvastatin Calcium 20 MG TAB PO SCH (20:28)
[2018-09-18] MEDS: Acetaminophen 325 MG TAB PO PRN (00:01)
[2018-09-18] MEDS: Melatonin 3 MG TAB PO PRN ×2 (00:01→20:38)
[2018-09-18 05:42] LABS: #Basophils 0.1 thou/uL (0.0-0.2); #Eosinphils 0.2 thou/uL (0.0-0.7); #Monocytes 0.6 thou/uL (0.11-0.59); #Neutrophils 2.8 thou/uL (1.40-6.50); %Basophils 1.6 % (0.0-1.0); %Lymphocytes 21.9 % (21.0-51.0); %Monocytes 11.8 % (0.0-10.0); %Neutrophils 59.7 % (42.0-75.0); Hemoglobin 11.4 g/dL (14.0-18.0); Mean Corpuscular HGB CONC 31.8 g/dL (32.0-36.0); Mean Corpuscular Hemoglobin 32.2 pg (27.0-31.0); Mean Platelet Volume 7.9 fL (7.4-10.4); Platelet Count 183 thou/uL (130-400); RBC Distribution Width 13.8 % (11.5-14.5); Red Blood Cell (RBC) Count 3.55 mill/uL (4.70-6.10); White Blood Cell (WBC) Count 4.6 thou/uL (4.8-10.8)
[2018-09-18 05:53] LABS: ALT (SGPT) 16 U/L (8-55); AST (SGOT) 26 U/L (5-34); Albumin 2.6 g/dL (3.4-4.8); Alkaline Phosphatase 78 U/L (40-150); Anion Gap 10 mmol/L (10-20); BUN (Urea Nitrogen) 15 mg/dL (8.4-25.7); Bilirubin, Total 0.5 mg/dL (0.2-1.2); Calc. Creatinine Clearance 61 mL/min (70-130); Calcium 8.5 mg/dL (7.8-10.44); Carbon Dioxide 25 mmol/L (23-31); Chloride 110 mmol/L (98-107); Estimated GFR-MDRD 71; Globulin 3.1 g/dL (2.4-3.5); Glucose 78 mg/dL (83-110); Potassium 3.9 mmol/L (3.5-5.1); Protein, Total 5.7 g/dL (5.8-8.1); Sodium 141 mmol/L (136-145)
[2018-09-18] MEDS: Ipratropium Bromide 0.06% Nasal Inhaler 15ml EA NARE SCH ×3 (08:56→20:42)
[2018-09-18] MEDS: Lisinopril 20 MG TAB PO SCH (08:57)
[2018-09-18] MEDS: guaiFENesin ER 600 MG TAB PO SCH ×2 (08:59→20:39)
[2018-09-18] MEDS: NIFEdipine XL 30 MG TAB PO SCH (08:59)
[2018-09-18] MEDS: Polyethylene Glycol 3350 17 GM Packet PO SCH (09:00)
--- NOTE | 2018-09-18 10:19 | PRG ---
DATE OF SERVICE: 09/18/2018 DATE OF ADMISSION: 09/07/2018 SUBJECTIVE: Mr. Zarate is a very pleasant 88-year-old white male who initially was brought to the e mergency room with stroke-like symptoms. He was found to have a basal ganglia and left lateral thala lisandro stroke. He was admitted to the stroke unit, stabilized, and now has been transferred to [facility] for PT, OT, and speech therapy. The patient has actually been doing very well and he is going to reach maximum medical benefit and wi ll be discharged tomorrow. PHYSICAL EXAMINATION: VITAL SIGNS: Today reveal blood pressure 146/62, pulse 81-87, respirations 14-20, O2 saturation 91%- 95% on room air, T-max 97.4. GENERAL: This is a well-developed, well-nourished, very pleasant, somewhat obese male in no apparent distress at this time. HEENT: Reveals normocephalic, nontraumatic cranium. Pupils equal, round, and reactive. Extraocular movements intact. Nose and throat are slightly dry, but clear. NECK: Supple without masses, nodes, or bruits. CHEST: Clear to auscultation. No rales, no rhonchi, no wheezes, and no cough is noted. HEART: Regular rate and rhythm without murmurs, gallops, or rubs. ABDOMEN: Soft and nontender without organomegaly. Normal bowel sounds are noted in all 4 quadrants. No rebound or guarding is noted. GENITOURINARY: Deferred. EXTREMITIES: No clubbing, cyanosis. The patient still has trace edema, little bit more in the right side than the left side. NEUROLOGIC: The patient is oriented to person, place, and time. His speech continues to get better. He has no problem with word-finding at this time. IMPRESSION: 1. 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 2. Hypertension. 3. Diabetes type 2, controlled on diet and exercise. 4. Hyperlipidemia. 5. Osteoarthritis. 6. History of early dementia with recent memory loss. 7. Allergic rhinitis. 8. Mild cognitive impairment. 9. Insomnia. 10. Generalized weakness. PLAN: 1. Continue melatonin as needed p.r.n. 2. Continue to monitor the patient's blood pressure closely. 3. Continue to monitor the patient's diabetes with Accu-Cheks before meals and at bedtime. 4. Stress ulcer prophylaxis. 5. Decubitus precautions. 6. Continue physical therapy and occupational therapy. 7. Continue speech therapy. 8. Plan to discharge tomorrow.
[2018-09-18] MEDS: Atorvastatin Calcium 20 MG TAB PO SCH (20:39)
[2018-09-19] MEDS: Polyethylene Glycol 3350 17 GM Packet PO SCH (08:34)
[2018-09-19] MEDS: Lisinopril 20 MG TAB PO SCH (08:35)
[2018-09-19] MEDS: guaiFENesin ER 600 MG TAB PO SCH (08:35)
[2018-09-19] MEDS: NIFEdipine XL 30 MG TAB PO SCH (08:36)
[2018-09-19] MEDS: Ipratropium Bromide 0.06% Nasal Inhaler 15ml EA NARE SCH (08:38)
[2018-09-19 09:06] VITALS: TEMP 97.5
--- NOTE | 2018-09-19 11:52 | DIS ---
DATE OF ADMISSION: 09/07/2018 DATE OF DISCHARGE: 09/19/2018 FINAL DIAGNOSES: Mr. Zarate is a very pleasant 88-year-old male brought to the emergency r oom with stroke like symptoms. He was found to have a basal ganglia and left lateral thalamic stroke . He was admitted to the stroke unit, stabilized and eventually was transferred to [facility] for physical therapy, occupational therapy, and speech therapy. The patient is actually doing very well, walking well, speaking well and has reached maximum medical benefit. He is to be discharged today and he will be doing [facility] outpatient therapy yariel use [facility] therapy because outpatient therapy charges him 40 dollars for each therapy sess ion. DISCHARGE MEDICATIONS: Includes this followin. Acetaminophen 650 q.4 hours p.r.n. 2. Ipratropium nasal spray or Flonase nasal spray 1 spray each nostril daily. 3. Tessalon Perles up to t.i.d. p.r.n. cough. 4. Lisinopril 20 mg 1 each day, and [facility]. 5. Pravastatin 80 mg every evening. 6. Nifedipine which is Procardia-XL 60 mg daily. 7. Guaifenesin DM extended release or Mucinex DM one to two q.12 hours as needed for congestion. PHYSICAL EXAMINATION: GENERAL: This is a well-developed, well-nourished, very pleasant, male in no apparent distr ess at this time. VITAL SIGNS: Reveal blood pressure this morning 157/71, pulse 89, respirations 20, O2 sat 92%-93% on room air, T-max 97.5. HEENT: Reveals normocephalic, nontraumatic cranium. The pupils are equally round and reactive. Ext raocular movements intact. Nose and throat are slightly dry. NECK: Supple, without mass, nodes or bruits. CHEST: Clear to auscultation. No rales, no rhonchi, no wheezes are noted. No cough is noted. HEART: Regular rate and rhythm. No murmurs, gallops or rubs are noted. ABDOMEN: Somewhat obese, soft and nontender. No organomegaly is noted. Normal bowel sounds are not ed in all 4 quadrants. The patient has no rebound or guarding. GENITOURINARY: Deferred. EXTREMITIES: No clubbing or cyanosis. The patient does have trace edema in his legs which tend to b other him. He is very self-conscious about that. NEUROLOGIC: The patient is oriented to person, place and time. His speech is much improved and has difficulty noticed that he had speech problems. He declines any problem with word finding. IMPRESSION: 1. 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 2. Hypertension. 3. Diabetes type 2, which is controlled by diet and exercise. 4. Hyperlipidemia. 5. Osteoarthritis. 6. History of early dementia with recent memory loss. 7. Allergic rhinitis. 8. Mild cognitive impairment. 9. Insomnia. 10. Generalized weakness. PLAN: 1. Continue home medications. 2. I will call and lisinopril 20 mg to [id number] with refills. 3. Continue to monitor the patient's sugar at home with Accu-Cheks p.r.n. 4. Continue to keep the patient out of bed and keep him awake during the day, so he can sleep at [facility]. 5. Continue with physical therapy, occupational therapy, and speech therapy with [facility]. 6. The patient is to be discharged right after lunch after therapy helps him with his last therapy s ession getting in and out of car. This discharge process has taken more than 45 minutes to discharge this patient today.
[2018-09-19 12:49] VITALS: BP 157/70
== END 2018-09-19 13:15 | disposition home health service (06) | DRG 948 ==
LOC: NAV ACUTE 21:44
PROVIDERS: ADMIT Family Medicine; ATTEND Family Medicine
DX: R53.1 Weakness (principal); I69.351 Hemiplegia and hemiparesis following cerebral infarction affecting right dominant side; I10 Essential (primary) hypertension; E11.9 Type 2 diabetes mellitus without complications; E78.5 Hyperlipidemia, unspecified; F03.90 Unspecified dementia, unspecified severity, without behavioral disturbance, psychotic disturbance, mood disturbance, and anxiety; J30.9 Allergic rhinitis, unspecified; G47.00 Insomnia, unspecified; Z91.14 Patient's other noncompliance with medication regimen; E66.9 Obesity, unspecified; M17.0 Bilateral primary osteoarthritis of knee; Z68.28 Body mass index [BMI] 28.0-28.9, adult
CPT/HCPCS: 36415; 36416; 80053; 85025; G9162-GN-CJ; G9163-GN-CI

== ENCOUNTER 2018-11-09 14:51 | Inpatient (IN) | payer MEDICARE ==
[2018-11-09 15:22] VITALS: BMI 27.8
[2018-11-09] MEDS ORDERED: Cyanocobalamin 1000 MCG/ML VIAL IM SCH (18:00)
[2018-11-09] MEDS ORDERED: MENTHOL TOP PRN (18:30)
[2018-11-09] MEDS ORDERED: ZINC OXIDE TOP PRN (18:30)
[2018-11-09] MEDS ORDERED: Atorvastatin Calcium 20 MG TAB PO SCH (21:00)
[2018-11-09] MEDS: metroNIDAZOLE 500 MG TAB PO SCH (21:28)
[2018-11-09] MEDS: Atorvastatin Calcium 20 MG TAB PO SCH (21:28)
[2018-11-09] MEDS: Cilostazol 100 MG TAB PO SCH (21:28)
[2018-11-09] MEDS: Donepezil HCl 10 MG TAB PO SCH (21:28)
[2018-11-09] MEDS: Docusate Sodium 100 MG/10 ML UDCUP PO SCH (21:31)
--- NOTE | 2018-11-10 02:05 | HP ---
CHIEF COMPLAINT: Recent admission to the hospital with bowel obstruction, sepsis and urinary retention requiring suprapubic catheter placement. HISTORY OF PRESENT ILLNESS: This is an 88-year-old male who was admitted to [facility] with a 2-week history of constipation. He was noted to have fecal impaction and colonic obstruction, and was positive for SIRS criteria. He was admitted to the hospital for colitis, sepsis, fecal impaction, lactic acidosis and was treated with enema b.i.d., empiric antibiotics and IV fluids. He was also noted to have urinary retention and possibility of recurrence of penile carcinoma and Urology was consulted, who placed a suprapubic catheter placement since he is status post partial penectomy and there was difficulty cannulating the catheter into the urethra. He was also seen by General Surgery, Gastroenterology, Pulmonary and Critical Care. The patient's obstruction resolved, sepsis criteria resolved. He was switched to p.o. Flagyl. He is tolerating his suprapubic catheter placement. 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 He was felt to need inpatient rehabilitation and transferred here. The patient is awake. He recognizes me and he states that the main problem was . He denies any fever or chills. His and daughter are in the room. PAST MEDICAL HISTORY: 1. Diabetes mellitus type 2. 2. Hypertension. 3. Dyslipidemia. 4. History of multiple CVA. 5. Peripheral vascular disease. 6. Insomnia. 7. Dementia. PAST SURGICAL HISTORY: Partial penectomy. FAMILY HISTORY: Positive for cancer and coronary artery disease. PSYCHOSOCIAL HISTORY: He has good family support. Denies any tobacco, alcohol, or recreational drug use. Apparently, he stopped driving. REVIEW OF SYSTEMS: CARDIOVASCULAR SYSTEM: Denies any chest pain, shortness of breath, palpitations, PND, orthopnea or pedal edema. RESPIRATORY SYSTEM: Denies any chronic cough, expectoration or pleuritic type chest pain. GASTROINTESTINAL SYSTEM: Resolved constipation. Denies any hematemesis, melena or hematochezia. GENITOURINARY SYSTEM: Had urinary retention requiring suprapubic catheter placement. Denies any hematuria. CENTRAL NERVOUS SYSTEM: Cognitive deficits present. No localized numbness, weakness or fainting spells. HEENT: Denies any difficulty with speech, vision, hearing or swallowing. PHYSICAL EXAMINATION: GENERAL: Pleasant 88-year-old male in no apparent distress. He is resting comfortably in bed, eating his dinner. His and daughter are in the room. He denies any concerns or questions. VITAL SIGNS: He is afebrile. Heart rate 90, respirations 18, oxygen saturation is 94% on room air, blood pressure is 151/66. HEENT: Normocephalic, atraumatic. Pupils equally react to light and accommodation. NECK: No JVD, thyromegaly, cervical lymphadenopathy, carotid bruits. CARDIOVASCULAR SYSTEM: S1 and S2 plus. Rate and rhythm regular. RESPIRATORY SYSTEM: Normal vesicular breath sounds heard on all lung martinez. ABDOMEN: Soft, nontender. Bowel sounds heard in all quadrants. EXTREMITIES: Without cyanosis or clubbing. Trace edema. Peripheral pulses are palpable. CENTRAL NERVOUS SYSTEM: He is alert, awake and he knows that he is in the hospital and he recognizes me. Cranial nerves 2 through 12 grossly intact. Motor system examination shows generalized weakness. He does have a suprapubic catheter in place. LABORATORY DATA: Laboratory values done this morning shows a white count of 7.9, H and H are 11.8 and 35.8. Sodium 144, potassium 3.5, BUN and creatinine are 10 and 0.95. MICROBIOLOGY: Blood cultures have been negative. Urine culture is negative for 48 hours. Stool studies are negative for Campylobacter and E. coli. IMPRESSION: 1. Noninfectious colitis, on empiric Flagyl. 2. Dyslipidemia. 3. Dementia. 4. Hypertension. 5. Urinary retention, possibly due to benign prostatic hyperplasia. 6. History of penile cancer. 7. There is documentation of diabetes in one of his notes, but his blood sugars have been good. He is not on any medications for diabetes and I do not see a glycohemoglobin. PLAN: 1. Continue current medications. 2. Bowel regimen. 3. Nutritional support. 4. DVT prophylaxis with Lovenox. 5. Stress ulcer prophylaxis. 6. Decubitus precaution. 7. Consult PT, OT. 8. Suprapubic catheter care. 9. Routine laboratory values. 10. Discussed with patient and family in detail. 11. Check glycohemoglobin. 12. Dr. Torres, on-call this weekend, and Dr. Valle back on Tuesday. Job ID: [id number]
[2018-11-10 05:15] LABS: #Basophils 0.1 thou/uL (0.0-0.2); #Eosinphils 0.1 thou/uL (0.0-0.7); #Monocytes 0.5 thou/uL (0.11-0.59); #Neutrophils 4.9 thou/uL (1.40-6.50); %Basophils 1.1 % (0.0-1.0); %Eosinophils 2.2 % (0.0-10.0); %Lymphocytes 14.8 % (21.0-51.0); %Monocytes 7.2 % (0.0-10.0); %Neutrophils 74.7 % (42.0-75.0); Hemoglobin 10.8 g/dL (14.0-18.0); Mean Corpuscular HGB CONC 32.3 g/dL (32.0-36.0); Mean Corpuscular Hemoglobin 31.9 pg (27.0-31.0); Mean Corpuscular Volume 98.7 fL (78.0-98.0); Mean Platelet Volume 9.6 fL (7.4-10.4); Platelet Count 134 thou/uL (130-400); RBC Distribution Width 14.3 % (11.5-14.5); Red Blood Cell (RBC) Count 3.39 mill/uL (4.70-6.10); White Blood Cell (WBC) Count 6.6 thou/uL (4.8-10.8)
[2018-11-10 05:26] LABS: Anion Gap 7 mmol/L (10-20); BUN (Urea Nitrogen) 9 mg/dL (8.4-25.7); Calc. Creatinine Clearance 69 mL/min (70-130); Calcium 7.6 mg/dL (7.8-10.44); Carbon Dioxide 22 mmol/L (23-31); Chloride 116 mmol/L (98-107); Estimated GFR-MDRD 79; Glucose 117 mg/dL (83-110); Potassium 3.4 mmol/L (3.5-5.1); Sodium 142 mmol/L (136-145)
[2018-11-10] MEDS: Cilostazol 100 MG TAB PO SCH ×2 (08:45→15:47)
[2018-11-10] MEDS: Potassium Chloride 20 MEQ TAB PO SCH ×2 (08:45→17:24)
[2018-11-10] MEDS: Furosemide 20 MG TAB PO SCH (08:45)
[2018-11-10] MEDS: metroNIDAZOLE 500 MG TAB PO SCH ×3 (08:46→20:07)
[2018-11-10] MEDS: Docusate Sodium 100 MG/10 ML UDCUP PO SCH ×2 (08:46→20:07)
[2018-11-10] MEDS: Tamsulosin HCl 0.4 MG CAP PO SCH (08:46)
[2018-11-10] MEDS: Polyethylene Glycol 3350 17 GM Packet PO SCH (08:46)
[2018-11-10] MEDS ORDERED: Enoxaparin Sodium 40 MG/0.4 ML SYRINGE SC SCH (09:00)
[2018-11-10 12:32] LABS: Hemoglobin A1c 5.4 % (4.0-6.0)
[2018-11-10] MEDS: Lisinopril 20 MG TAB PO SCH (12:45)
[2018-11-10] MEDS: NIFEdipine XL 30 MG TAB PO SCH (12:46)
[2018-11-10] MEDS: Atorvastatin Calcium 20 MG TAB PO SCH (20:07)
[2018-11-10] MEDS: Donepezil HCl 10 MG TAB PO SCH (20:07)
[2018-11-10] MEDS ORDERED: Prevnar 13-Val Conj/PF 0.5 ML SYRINGE IM ONE (21:00)
[2018-11-10] MEDS: Acetaminophen 500 MG TAB PO PRN (23:43)
[2018-11-11] MEDS: Tamsulosin HCl 0.4 MG CAP PO SCH (08:29)
[2018-11-11] MEDS: Potassium Chloride 20 MEQ TAB PO SCH ×3 (08:30→17:05)
[2018-11-11] MEDS: Cilostazol 100 MG TAB PO SCH ×2 (08:33→17:02)
[2018-11-11] MEDS: Furosemide 20 MG TAB PO SCH (08:36)
[2018-11-11] MEDS: metroNIDAZOLE 500 MG TAB PO SCH ×3 (08:36→20:02)
[2018-11-11] MEDS: Docusate Sodium 100 MG/10 ML UDCUP PO SCH (08:36)
[2018-11-11] MEDS: Polyethylene Glycol 3350 17 GM Packet PO SCH (08:37)
[2018-11-11] MEDS: NIFEdipine XL 30 MG TAB PO SCH (12:45)
[2018-11-11] MEDS: Lisinopril 20 MG TAB PO SCH (12:48)
[2018-11-11] MEDS: Acetaminophen 500 MG TAB PO PRN ×2 (12:52→20:02)
[2018-11-11] MEDS: Donepezil HCl 10 MG TAB PO SCH (20:02)
[2018-11-11] MEDS: Atorvastatin Calcium 20 MG TAB PO SCH (20:03)
[2018-11-12] MEDS: Cilostazol 100 MG TAB PO SCH ×2 (08:25→16:19)
[2018-11-12] MEDS: Tamsulosin HCl 0.4 MG CAP PO SCH (08:25)
[2018-11-12] MEDS: Potassium Chloride 20 MEQ TAB PO SCH ×2 (08:33→16:00)
[2018-11-12] MEDS: Furosemide 20 MG TAB PO SCH (08:33)
[2018-11-12] MEDS: Polyethylene Glycol 3350 17 GM Packet PO SCH (08:33)
[2018-11-12] MEDS: metroNIDAZOLE 500 MG TAB PO SCH ×3 (08:33→20:04)
[2018-11-12] MEDS: NIFEdipine XL 30 MG TAB PO SCH (11:40)
[2018-11-12] MEDS: Lisinopril 20 MG TAB PO SCH (11:40)
[2018-11-12] MEDS: Donepezil HCl 10 MG TAB PO SCH (20:04)
[2018-11-12] MEDS: Atorvastatin Calcium 20 MG TAB PO SCH (20:04)
[2018-11-12] MEDS: Acetaminophen 500 MG TAB PO PRN (20:05)
--- NOTE | 2018-11-12 22:00 | PRG ---
DATE OF SERVICE: 11/11/2018 This is a patient of Dr. Hussein. SUBJECTIVE: A long discussion with family about patient's diagnosis of fecal impaction, colitis being treated with antibiotics, but with persistent diarrhea as patient is also on multiple laxatives and wishes these to be stopped. Also finding of a positive biopsy for squamous cell cancer was found. The patient states that he did not know this and wishes to see if he can have an expedited followup with the urologist, Dr. Castro, who placed a suprapubic catheter. His hematuria in the yesterday has stopped since he has discontinued his Lovenox and he is feeling well with no chest pain, shortness of breath, or abdominal pain. OBJECTIVE: Shows temperature is 97.5, pulse 104, respirations 20, O2 sats 95% on room air, blood pressure 150/64. Lungs are clear. Cardiac examination is regular rhythm. Abdomen is soft and nontender. Suprapubic is functioning well with urine that has cleared now from the hematuria from yesterday. ASSESSMENT: 1. Resolving colitis, possibly due to fecal impaction with diarrhea, on stool softeners and MiraLAX. 2. Resolved hematuria secondary to trauma with suprapubic plus also anticoagulation in a patient with unknown etiology of his obstruction, possibly malignant. 3. 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 PLAN: 1. Discuss followup with Dr. Castro as soon as possible next week. 2. Continue off anticoagulation. 3. Continue suprapubic care. 4. Continue nutritional support and physical therapy. Job ID: [id number]
[2018-11-13] MEDS: Cilostazol 100 MG TAB PO SCH ×2 (08:21→17:51)
[2018-11-13] MEDS: Potassium Chloride 20 MEQ TAB PO SCH ×2 (08:21→17:51)
[2018-11-13] MEDS: Tamsulosin HCl 0.4 MG CAP PO SCH (08:22)
[2018-11-13] MEDS: metroNIDAZOLE 500 MG TAB PO SCH ×3 (08:22→20:08)
[2018-11-13] MEDS: Furosemide 20 MG TAB PO SCH (08:22)
[2018-11-13] MEDS: Polyethylene Glycol 3350 17 GM Packet PO SCH (08:22)
--- NOTE | 2018-11-13 10:27 | PRG ---
DATE OF SERVICE: 11/13/2018 Mr. Zarate is a well-developed, well-nourished, slightly obese male, who unfortunately became very constipated with fecal impaction. He was septic and had SIRS. He was admitted to [facility]. While there, he was seen by Dr. Castro, placed a suprapubic catheter because of urinary retention and did a biopsy on the patient's penis which was positive for squamous cell cancer. He eventually was stabilized, but noted to be extremely weak. He was transferred here on empiric antibiotics and IV fluids. While there, he was seen by General Surgery, Gastroenterology, Pulmonary Critical Care, and Dr. Castro for his urinary retention. The patient was transferred here for continued therapy and continued antibiotics. SUBJECTIVE: The patient states he is doing well today. Dr. Castro's office called and we will get a call back to them, so we can get him scheduled for evaluation with Dr. Castro for his penile cancer. The patient's family is wanting that to become an urgent issue. OBJECTIVE: VITAL SIGNS: Today revealed blood pressure this morning 117/56, pulse 98, respirations 20, O2 saturation 92% to 95% on room air, T-max 97.9. GENERAL: He is a well-developed, well-nourished, somewhat obese white male, in no apparent distress at this time. HEENT: Reveals normocephalic, nontraumatic cranium. Pupils are equal, round, reactive. Extraocular movements are intact. Nose and throat are slightly dry. NECK: Supple without masses, nodes, or bruits. CHEST: Clear to auscultation. No rales, rhonchi, or wheezes are heard. HEART: Reveals a regular rate and rhythm without murmurs, gallops, or rubs. ABDOMEN: Soft, nontender without organomegaly. Normal bowel sounds are noted. No rebound or guarding is noted. : Deferred. Suprapubic catheter is functioning well with clear urine. EXTREMITIES: Reveal no clubbing. Trace cyanosis. ASSESSMENT: 1. Resolving colitis. Continue stool softeners, MiraLAX. 2. Hematuria is cleared secondary to suprapubic trauma. 3. 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 4. Hypertension. 5. Hyperlipidemia. 6. History of multiple cerebrovascular accidents. 7. Peripheral vascular disease. 8. Insomnia. 9. Dementia. PLAN: 1. We will make sure the patient is on his pravastatin. 2. Make sure the patient is on cilostazol 50 mg b.i.d. 3. Make sure the patient is on his furosemide 40 mg daily. Continue the patient's present course and therapy. Job ID: [id number]
[2018-11-13] MEDS: Lisinopril 20 MG TAB PO SCH (13:33)
[2018-11-13] MEDS: NIFEdipine XL 30 MG TAB PO SCH (13:34)
[2018-11-13] MEDS: Acetaminophen 500 MG TAB PO PRN (17:55)
[2018-11-13] MEDS: Donepezil HCl 10 MG TAB PO SCH (20:08)
[2018-11-13] MEDS: Atorvastatin Calcium 20 MG TAB PO SCH (20:08)
[2018-11-14] MEDS: metroNIDAZOLE 500 MG TAB PO SCH ×3 (08:35→20:09)
[2018-11-14] MEDS: Cilostazol 100 MG TAB PO SCH ×2 (08:35→16:55)
[2018-11-14] MEDS: Furosemide 20 MG TAB PO SCH (08:35)
[2018-11-14] MEDS: Potassium Chloride 20 MEQ TAB PO SCH ×2 (08:35→16:56)
[2018-11-14] MEDS: Tamsulosin HCl 0.4 MG CAP PO SCH (08:36)
[2018-11-14] MEDS: Polyethylene Glycol 3350 17 GM Packet PO SCH (08:36)
[2018-11-14] MEDS: Lisinopril 20 MG TAB PO SCH (12:22)
[2018-11-14] MEDS: NIFEdipine XL 30 MG TAB PO SCH (12:23)
[2018-11-14] MEDS: Atorvastatin Calcium 20 MG TAB PO SCH (20:10)
[2018-11-14] MEDS: Donepezil HCl 10 MG TAB PO SCH (20:10)
[2018-11-14] MEDS: Acetaminophen 500 MG TAB PO PRN (20:10)
--- NOTE | 2018-11-14 21:25 | PRG ---
DATE OF SERVICE: 11/14/2018 Mr. Zarate is a very pleasant, slightly obese 88-year-old white male, where he was admitted with urinary retention and sepsis. He eventually was stabilized and transferred to [facility] post penile biopsy, which revealed squamous cell cancer. He has an appointment with Dr. Castro, his urologist on November 28 for further evaluation. SUBJECTIVE: The patient states he is doing well today except his right hand and arm is somewhat swollen, but not so much in shoulder. He has been having it down pretty much most of the day and we will elevate that. He also has some 1+ edema in his lower extremities, so we will increase his Lasix to 40 and observe him in the next couple of days. We will also do blood work. OBJECTIVE: VITAL SIGNS: Today reveal blood pressure 141/65, pulse 98 to 100, respirations 20, O2 saturation 93% to 96% on room air, T-max 98.1. Last lab was done on 11/10. We will repeat his lab tomorrow, including a CBC, comprehensive metabolic, and beta natriuretic peptide. PHYSICAL EXAMINATION: GENERAL: This is a well-developed, well-nourished, slightly obese male in no apparent distress at this time. HEENT: Reveals normocephalic and nontraumatic cranium. Pupils are equal, round, and reactive. Extraocular movements are intact. Nose and throat are moist. NECK: Supple without masses, nodes, or bruits. No jugular venous distention is noted today. CHEST: Clear to auscultation. No rales are noted. No rhonchi, wheezes or cough are heard. HEART: Reveals a regular rate and rhythm. No murmurs, gallops, or rubs are noted today. ABDOMEN: Soft and nontender without organomegaly. Normal bowel sounds are noted in all four quadrants. No rebound or guarding is noted. : Deferred. Suprapubic catheter is still draining clear urine. EXTREMITIES: Reveal no clubbing or cyanosis with trace edema. ASSESSMENT: 1. Resolving colitis. Continue stool softeners, MiraLAX. 2. Hematuria, which is cleared secondary to suprapubic trauma. 3. Penile malignancy which the patient has appointment with Dr. Castro, his urologist at [facility] on November 28. 4. Hypertension. 5. Hyperlipidemia. 6. History of multiple cerebrovascular accidents. 7. Peripheral vascular disease. 8. Insomnia. 9. Dementia. PLAN: The patient also has some diarrhea. We will make sure he does not have C. diff. We will check a stool for that. The patient is on his pravastatin 40 mg daily. The patient is on cilostazol 50 mg twice a day. The patient is on furosemide 40 mg starting today. We will continue to follow the patient closely. Job ID: [id number]
[2018-11-15 05:40] LABS: ALT (SGPT) 15 U/L (8-55); AST (SGOT) 22 U/L (5-34); Albumin 2.2 g/dL (3.4-4.8); Alkaline Phosphatase 77 U/L (40-150); Anion Gap 9 mmol/L (10-20); BUN (Urea Nitrogen) 11 mg/dL (8.4-25.7); Bilirubin, Total 0.3 mg/dL (0.2-1.2); Calc. Creatinine Clearance 50 mL/min (70-130); Carbon Dioxide 16 mmol/L (23-31); Chloride 119 mmol/L (98-107); Estimated GFR-MDRD 55; Globulin 3.1 g/dL (2.4-3.5); Glucose 101 mg/dL (83-110); Potassium 4.7 mmol/L (3.5-5.1); Protein, Total 5.3 g/dL (5.8-8.1); Sodium 139 mmol/L (136-145)
[2018-11-15 05:45] LABS: #Basophils 0.1 thou/uL (0.0-0.2); #Eosinphils 0.1 thou/uL (0.0-0.7); #Lymphocytes 0.8 thou/uL (1.20-3.40); #Monocytes 0.5 thou/uL (0.11-0.59); #Neutrophils 4.4 thou/uL (1.40-6.50); %Basophils 0.9 % (0.0-1.0); %Eosinophils 2.4 % (0.0-10.0); %Monocytes 8.9 % (0.0-10.0); %Neutrophils 73.8 % (42.0-75.0); Hemoglobin 10.1 g/dL (14.0-18.0); Mean Corpuscular HGB CONC 32.3 g/dL (32.0-36.0); Mean Corpuscular Hemoglobin 32.8 pg (27.0-31.0); Mean Platelet Volume 9.4 fL (7.4-10.4); Platelet Count 211 thou/uL (130-400); RBC Distribution Width 15.5 % (11.5-14.5)
[2018-11-15 05:48] LABS: Anisocytosis SLIGHT = 6-15 cells (100X) (0-5/hpf); PLT Morphology Comment ADQ
[2018-11-15] MEDS: Cilostazol 100 MG TAB PO SCH ×2 (08:24→16:57)
[2018-11-15] MEDS: Potassium Chloride 20 MEQ TAB PO SCH ×2 (08:24→16:57)
[2018-11-15] MEDS: Tamsulosin HCl 0.4 MG CAP PO SCH (08:24)
[2018-11-15] MEDS: Furosemide 40 MG TAB PO SCH (08:24)
[2018-11-15] MEDS: Polyethylene Glycol 3350 17 GM Packet PO SCH (08:25)
[2018-11-15] MEDS: NIFEdipine XL 30 MG TAB PO SCH (12:27)
[2018-11-15] MEDS: Lisinopril 20 MG TAB PO SCH (12:27)
--- NOTE | 2018-11-15 16:11 | PRG ---
DATE OF SERVICE: 11/15/2018 Mr. Zarate is an 88-year-old male, who was admitted to [facility] with urinary retention and sepsis. He eventually was stabilized and had a suprapubic catheter placed. The patient also had squamous cell cancer, which was biopsied on his penis. He has seen by Dr. Castro, his urologist, and has an appointment to see him on November 28 for further evaluation. SUBJECTIVE: The patient states he is doing well, but thinks he worked too hard in therapy this morning. His right hand and right shoulder are not as swollen. We did increase his Lasix to 40 mg yesterday. He states he is feeling well, but he is little bit cold today. OBJECTIVE: VITAL SIGNS: Today, reveal blood pressure 125/60, pulse 102, respirations 20, O2 saturation 94% on room air, T-max 97.8. GENERAL: This is a well-developed, well-nourished, slightly obese male, in no apparent distress at this time. HEENT: Reveals normocephalic and nontraumatic cranium. Pupils are equal, round, and reactive. Nose and throat and mucous membranes are moist. NECK: Supple without masses, nodes, or bruits. CHEST: Clear to auscultation. No rales. No rhonchi. No wheezes or cough is heard. HEART: Reveals a regular rate and rhythm. No murmurs, gallops, or rubs are noted today. ABDOMEN: Soft, nontender without organomegaly. Normal bowel sounds are noted in all four quadrants. The patient does not have any rebound or guarding today. : Deferred. Suprapubic catheter still draining clear urine. EXTREMITIES: Reveal no clubbing, cyanosis, with much decreased edema, but still trace. ASSESSMENT: 1. Resolving colitis. Continue stool softeners, MiraLAX. 2. Hematuria, which is cleared. 3. Penile malignancy, the patient has appointment with Dr. Castro on November 28. 4. Hypertension. 5. Hyperlipidemia. 6. History of multiple cerebrovascular accidents. 7. Peripheral vascular disease. 8. Insomnia. 9. Dementia. PLAN: 1. The patient's labs were done today, which actually revealed a white count of 6000, hemoglobin 10.1, hematocrit 31.4, and platelet count 211,000. BUN was 11, creatinine 1.25, sugar is 101. Sodium 134, potassium 4.7. BNP was 118, which is excellent. 2. The patient will continue on pravastatin 40 mg daily. 3. The patient will continue on cilostazol 50 mg b.i.d. 4. The patient will continue furosemide 40 mg daily and will continue to follow his potassium. 5. Continue to follow the patient and encourage him to participate well with physical therapy and occupational therapy. Job ID: [id number]
[2018-11-15] MEDS: Atorvastatin Calcium 20 MG TAB PO SCH (20:43)
[2018-11-15] MEDS: Acetaminophen 500 MG TAB PO PRN (20:43)
[2018-11-15] MEDS: Donepezil HCl 10 MG TAB PO SCH (20:43)
[2018-11-16] MEDS: Cilostazol 100 MG TAB PO SCH ×2 (08:28→16:53)
[2018-11-16] MEDS: Polyethylene Glycol 3350 17 GM Packet PO SCH (08:30)
[2018-11-16] MEDS: Potassium Chloride 20 MEQ TAB PO SCH ×2 (08:30→16:53)
[2018-11-16] MEDS: Tamsulosin HCl 0.4 MG CAP PO SCH (08:30)
[2018-11-16] MEDS: Furosemide 40 MG TAB PO SCH (08:30)
[2018-11-16] MEDS: NIFEdipine XL 30 MG TAB PO SCH (11:52)
[2018-11-16] MEDS: Lisinopril 20 MG TAB PO SCH (11:53)
--- NOTE | 2018-11-16 20:10 | PRG ---
DATE OF SERVICE: 11/16/2018 Mr. Zarate is an 88-year-old male, admitted to [facility] with sepsis, suprapubic catheter placement, urinary retention, squamous cell cancer of the penis. Dr. Castro, his urologist, has appointment to see him again on November 28 for further evaluation of squamous cell cancer. SUBJECTIVE: The patient states he had a good day today. He is already able to walk to the nurse's station and back. His right hand and right shoulder again are not as swollen. He still is on Lasix 40 mg daily. He states he feels much better, but is a low cold today. OBJECTIVE: VITAL SIGNS: Today reveal blood pressure 123/58, pulse 95, respirations 18 to 20, O2 saturation 95% on room air and T-max 98.1. GENERAL: This is a well-developed, well-nourished, slightly obese male, in no apparent distress at this time. HEENT: Reveals normocephalic, nontraumatic cranium. Pupils equally round and reactive. Extraocular movements are intact. Nose and throat are slightly dry, but clear. Mucous membranes otherwise are moist. NECK: Supple without masses, nodes, or bruits. CHEST: Clear to auscultation. No rales, rhonchi, wheezes, or cough is heard. HEART: Reveals a regular rate and rhythm. No murmurs, gallops, or rubs are heard. ABDOMEN: Soft, nontender, and obese. Normal bowel sounds are noted. No rebound or guarding is noted. : Deferred. Handley catheter is still draining well clear urine. EXTREMITIES: Reveal no clubbing or cyanosis. Much decreased edema in his right hand. ASSESSMENT: 1. Resolving colitis. Continue stool softeners and MiraLax. 2. Hematuria. 3. Penile malignancy, which the patient has an appointment with Dr. Castro on November 28 at [facility]. 4. Hypertension. 5. Hyperlipidemia. 6. 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 7. Peripheral vascular disease. 8. Insomnia. 9. Dementia. PLAN: 1. The patient will continue his pravastatin 40 mg daily. 2. The patient will continue cilostazol 50 mg twice a day. 3. The patient will continue 40 mg of furosemide daily. 4. Continue following the patient's edema. 5. Continue to encourage the patient to participate fully in physical therapy and occupational therapy. Job ID: [id number]
[2018-11-16] MEDS: Atorvastatin Calcium 20 MG TAB PO SCH (21:20)
[2018-11-16] MEDS: Donepezil HCl 10 MG TAB PO SCH (21:20)
[2018-11-17] MEDS: Acetaminophen 500 MG TAB PO PRN (08:15)
[2018-11-17] MEDS: Cilostazol 100 MG TAB PO SCH ×2 (08:19→17:21)
[2018-11-17] MEDS: Potassium Chloride 20 MEQ TAB PO SCH ×2 (08:19→17:21)
[2018-11-17] MEDS: Polyethylene Glycol 3350 17 GM Packet PO SCH ×2 (08:20→08:54)
[2018-11-17] MEDS: Furosemide 40 MG TAB PO SCH (08:20)
[2018-11-17] MEDS: Tamsulosin HCl 0.4 MG CAP PO SCH (08:35)
[2018-11-17] MEDS: Lisinopril 20 MG TAB PO SCH (13:02)
[2018-11-17] MEDS: NIFEdipine XL 30 MG TAB PO SCH (13:02)
--- NOTE | 2018-11-17 20:13 | PRG ---
DATE OF SERVICE: 11/17/2018 The patient is an 88-year-old male who initially was admitted to [facility] with sepsis. He had a suprapubic catheter placed because of urinary retention. 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 He has been followed by Dr. Castro on November 28 for further evaluation. SUBJECTIVE: The patient states he had a good day today, except he is having loose stools. He also wonders if he can take Nexium p.r.n. like he takes it at home. He states he is walking much better and feeling better. His balance is still kind of poor. Our game plan is to continue physical therapy until he gets stronger and possibly discharge may be the end of next week. OBJECTIVE: VITAL SIGNS: Today, reveal blood pressure is 132/62, pulse 97 to 99, respirations 16 to 18, O2 saturation is 95% on room air, and T-max 98.7. GENERAL: Reveals a well-developed, well-nourished, slightly obese male. He has no concerns or complaints today except for his loose stools. HEENT: Reveals normocephalic, nontraumatic cranium. Pupils are equally round and reactive. Extraocular movements are intact. Nose and throat are slightly dry. NECK: Supple without masses, nodes, or bruits. CHEST: Clear to auscultation. No rales, rhonchi, or wheezes are heard. HEART: Reveals a regular rate and rhythm without murmurs, gallops, or rubs. ABDOMEN: Soft, nontender without organomegaly. Normal bowel sounds are noted. No rebound or guarding is noted. : Exam is deferred. Handley catheter is noted to still be draining clear urine. EXTREMITIES: Reveal no clubbing, cyanosis, or edema. ASSESSMENT: 1. Resolving colitis. Stopped stool softeners and MiraLAX at this time. 2. Hematuria. 3. Penile malignancy, which is positive and the patient has an appointment with Dr. Castro on November 28 at [facility]. 4. Hypertension. 5. Hyperlipidemia. 6. 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 7. Peripheral vascular disease. 8. Insomnia. 9. Dementia. PLAN: 1. Make the Colace p.r.n. 2. Make the MiraLAX p.r.n. 3. Continue present other medications. 4. Continue to monitor the patient for edema. 5. Stress ulcer prophylaxis. 6. Decubitus precautions. 7. Deep venous thrombosis prophylaxis. 8. Have the patient out of bed as much as possible, sitting in a chair or wheelchair over the weekend. 9. Continue physical therapy and occupational therapy. Job ID: [id number]
[2018-11-17] MEDS: Atorvastatin Calcium 20 MG TAB PO SCH (20:56)
[2018-11-17] MEDS: Donepezil HCl 10 MG TAB PO SCH (20:56)
[2018-11-18] MEDS: Acetaminophen 500 MG TAB PO PRN ×2 (02:09→17:09)
[2018-11-18] MEDS: Tamsulosin HCl 0.4 MG CAP PO SCH (08:20)
[2018-11-18] MEDS: Furosemide 40 MG TAB PO SCH (08:21)
[2018-11-18] MEDS: Cilostazol 100 MG TAB PO SCH ×2 (08:21→16:59)
[2018-11-18] MEDS: Potassium Chloride 20 MEQ TAB PO SCH ×2 (08:21→17:00)
[2018-11-18] MEDS: Polyethylene Glycol 3350 17 GM Packet PO SCH (08:27)
--- NOTE | 2018-11-18 10:16 | PRG ---
DATE OF SERVICE: 11/18/2018 SUBJECTIVE: Mr. Zarate is an 88-year-old male, who was taken to the emergency room at [facility], admitted with sepsis. He had to have a suprapubic catheter placed because of urinary retention and sepsis. While there, he was also found to have recurrence of his squamous cell cancer of the penis, which was biopsied. He was followed by Dr. Castro and he has an appointment with Dr. Castro on the . Subjectively, the patient states he is doing well, I awakened him this morning and he said he has no complaints and he wants to go back to sleep. He has no complaints today. OBJECTIVE: VITAL SIGNS: Reveal blood pressure 137/65, pulse 87 to 99, respirations 18 to 20, O2 saturation 95% to 98% on room air, and T-max 98.7. GENERAL: This is a well-developed, well-nourished, obese male, in no apparent distress at this time. HEENT: Reveals normocephalic and nontraumatic cranium. Pupils are equal, round, reactive. Extraocular movements are intact. Nose and throat are slightly dry. NECK: Supple without masses, nodes, or bruits. CHEST: Clear to auscultation. No rales, rhonchi, or wheezes are heard. HEART: Reveals a regular rate and rhythm without murmurs, gallops, or rubs. ABDOMEN: Soft, nontender without organomegaly. Normal bowel sounds are noted. No rebound or guarding is noted. : Exam is deferred. EXTREMITIES: Reveal no clubbing, cyanosis, or edema. ASSESSMENT: 1. Resolving colitis. 2. Stopped the stool softeners and MiraLAX yesterday. 3. Hematuria, resolved. 4. Penile malignancy, for which the patient has an appointment with Dr. Castro at [facility] on November 28. 5. Hypertension. 6. Hyperlipidemia. 7. History of multiple cerebrovascular accidents and transient ischemic attacks. 8. Peripheral vascular disease. 9. Insomnia. 10. Dementia. PLAN: 1. The stool softeners will be made p.r.n. 2. Continue other medications. 3. Continue stress ulcer prophylaxis. 4. Continue decubitus precautions. 5. Continue DVT prophylaxis. 6. Continue physical therapy and occupational therapy. 7. Encourage the patient to stay out of bed as much as possible. Sitting in a wheelchair or recliner or regular chair all weekend. Job ID: [id number]
[2018-11-18] MEDS: Lisinopril 20 MG TAB PO SCH (12:05)
[2018-11-18] MEDS: NIFEdipine XL 30 MG TAB PO SCH (12:06)
[2018-11-18] MEDS: Atorvastatin Calcium 20 MG TAB PO SCH (21:25)
[2018-11-18] MEDS: Donepezil HCl 10 MG TAB PO SCH (21:25)
[2018-11-19] MEDS: Cilostazol 100 MG TAB PO SCH ×2 (08:05→16:35)
[2018-11-19] MEDS: Furosemide 40 MG TAB PO SCH (08:05)
[2018-11-19] MEDS: Potassium Chloride 20 MEQ TAB PO SCH ×2 (08:06→16:37)
[2018-11-19] MEDS: Tamsulosin HCl 0.4 MG CAP PO SCH (08:06)
[2018-11-19] MEDS: Polyethylene Glycol 3350 17 GM Packet PO SCH (08:09)
--- NOTE | 2018-11-19 08:52 | PRG ---
DATE OF SERVICE: 11/19/2018 SUBJECTIVE: Mr. Zarate is an 88-year-old male who went to the ER at [facility]. He was found to be septic with urinary retention and had to have a urinary suprapubic catheter placed. While there, he was seen by Dr. 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 He has an appointment with Dr. Castro on the . This morning, the patient is sleeping and is awake and he is immediately oriented x3. He states he is doing well. He is just sleepy and he has no complaints today. OBJECTIVE: VITAL SIGNS: Today reveal blood pressure this morning is 126/62, pulse 89 to 94, respirations 20, O2 saturation 95% on room air, and T-max 97.9. GENERAL: This is a well-developed, slightly obese male, in no apparent distress at this time. HEENT: Reveals normocephalic, nontraumatic cranium. Pupils equally round, reactive. Extraocular movements are intact. Nose and throat are slightly dry. NECK: Supple without masses, nodes, or bruits. CHEST: Clear to auscultation. No rales, no rhonchi, no wheezes were heard. HEART: Reveals a regular rate and rhythm without murmurs, gallops, or rubs. ABDOMEN: Soft, nontender without organomegaly. Normal bowel sounds are noted. He is obese. No rebound or guarding is noted. : Deferred. EXTREMITIES: Reveal no clubbing, cyanosis, or edema. NEUROLOGIC: The patient is oriented to person, place, and time. The patient is noncompliant because he gets up in the middle of night, goes to the bathroom, and will not the call nurses. He is at risk for falls. ASSESSMENT: 1. Resolving colitis. 2. Hematuria, resolved. 3. Penile malignancy. The patient has appointment with Dr. Castro on November 28. 4. Hypertension. 5. Hyperlipidemia. 6. Multiple cerebrovascular accidents and transient ischemic attacks in the past. 7. Peripheral vascular disease. 8. Insomnia. 9. Dementia. 10. Noncompliance. PLAN: 1. The patient's stool softeners are p.r.n. 2. Continue stress ulcer prophylaxis. 3. Continue decubitus precautions. 4. Continue DVT prophylaxis. 5. Continue physical therapy and occupational therapy. 6. Encourage the patient to be out of bed as much as possible, although the patient when I left yesterday, went back to bed immediately. 7. Encourage the patient to sit in his wheelchair, recliner, or regular chair most of the weekend, so he can continue to increase his strength and stamina. Job ID: [id number]
[2018-11-19] MEDS: Lisinopril 20 MG TAB PO SCH (12:35)
[2018-11-19] MEDS: NIFEdipine XL 30 MG TAB PO SCH (12:35)
[2018-11-19] MEDS: Acetaminophen 500 MG TAB PO PRN (16:34)
[2018-11-19] MEDS: Atorvastatin Calcium 20 MG TAB PO SCH (21:10)
[2018-11-19] MEDS: Donepezil HCl 10 MG TAB PO SCH (21:10)
[2018-11-20] MEDS: Cilostazol 100 MG TAB PO SCH ×2 (08:06→16:53)
[2018-11-20] MEDS: Tamsulosin HCl 0.4 MG CAP PO SCH (08:06)
[2018-11-20] MEDS: Furosemide 40 MG TAB PO SCH (08:06)
[2018-11-20] MEDS: Polyethylene Glycol 3350 17 GM Packet PO SCH (08:06)
[2018-11-20] MEDS: Potassium Chloride 20 MEQ TAB PO SCH ×2 (08:06→16:53)
[2018-11-20] MEDS: NIFEdipine XL 30 MG TAB PO SCH (11:47)
[2018-11-20] MEDS: Lisinopril 20 MG TAB PO SCH (11:47)
[2018-11-20] MEDS: Atorvastatin Calcium 20 MG TAB PO SCH (19:39)
[2018-11-20] MEDS: Donepezil HCl 10 MG TAB PO SCH (19:39)
[2018-11-20] MEDS: Acetaminophen 500 MG TAB PO PRN (19:39)
--- NOTE | 2018-11-20 19:47 | PRG ---
DATE OF SERVICE: 11/20/2018 SUBJECTIVE: Mr. Zarate is an 88-year-old male went to the ER at [facility], found to be septic with urinary retention. He had to have a suprapubic catheter placed. While he was there, Dr. Castro, his urologist did a biopsy on his penis, which revealed squamous cell cancer. He now has appointment to see Dr. Castro on the . This morning, the patient was sleeping, was encouraged to do some walking. He was also encouraged to stay out of bed. When I came back, he was back in bed and refused therapy. I told him that he could not refuse therapy. OBJECTIVE: VITAL SIGNS: Today, blood pressure 115/56, pulse 88-95, respirations 18-20, O2 saturation 93% to 98% on room air. T-max 97.8. GENERAL: This is a well-developed, well-nourished, slightly obese male, in no apparent distress at this time. HEENT: Reveals normocephalic nontraumatic cranium. Pupils equal, round, reactive. Extraocular movements intact. Nose and throat are slightly dry. NECK: Supple without masses, nodes, or bruits. CHEST: Clear to auscultation. No rales, rhonchi, wheezes, or cough is heard. HEART: Reveals a regular rate and rhythm. No murmurs, gallops, or rubs are noted. ABDOMEN: Soft, obese, nontender without organomegaly. Normal bowel sounds are noted in all 4 quadrants. No rebound or guarding is noted. : Deferred. EXTREMITIES: Reveal no clubbing, cyanosis, or edema. NEUROLOGIC: The patient is oriented to person, place, and time. The patient is at times noncompliant and when he wants to walk, he will walk and when he wants to lay in bed, he will lay in bed. ASSESSMENT: 1. Resolved colitis. 2. Hematuria, resolved. 3. Penile malignancy. The patient has an appointment with Dr. Castro on November 28. 4. Hypertension. 5. Hyperlipidemia. 6. Multiple cerebrovascular accidents and transient ischemic attacks in the past. 7. Peripheral vascular disease. 8. Insomnia. 9. Dementia. 10. Noncompliance. PLAN: 1. Continue stress ulcer prophylaxis. 2. Continue DVT prophylaxis. 3. Decubitus precautions. 4. Continue physical therapy and occupational therapy. 5. Encourage the patient to be out of bed as much as possible. 6. Encourage the patient sit in a wheelchair, recliner, or regular chair to increase the strength and stamina. 7. The patient's stool softeners are p.r.n. Job ID: [id number]
[2018-11-21] MEDS: Cilostazol 100 MG TAB PO SCH ×2 (08:15→17:27)
[2018-11-21] MEDS: Potassium Chloride 20 MEQ TAB PO SCH ×2 (08:17→17:28)
[2018-11-21] MEDS: Tamsulosin HCl 0.4 MG CAP PO SCH (08:18)
[2018-11-21] MEDS: Furosemide 40 MG TAB PO SCH (08:23)
[2018-11-21] MEDS: Polyethylene Glycol 3350 17 GM Packet PO SCH (08:24)
[2018-11-21] MEDS: Lisinopril 20 MG TAB PO SCH (12:22)
[2018-11-21] MEDS: NIFEdipine XL 30 MG TAB PO SCH (12:22)
[2018-11-21] MEDS: Acetaminophen 500 MG TAB PO PRN (20:12)
[2018-11-21] MEDS: Donepezil HCl 10 MG TAB PO SCH (20:12)
[2018-11-21] MEDS: Atorvastatin Calcium 20 MG TAB PO SCH (20:12)
--- NOTE | 2018-11-21 20:19 | PRG ---
DATE OF SERVICE: 11/21/2018 SUBJECTIVE: Mr. Zarate is an 88-year-old male, who went to the emergency room at [facility] with sepsis. He had urinary retention and had to have a suprapubic catheter placed. Dr. Castro, his urologist, did a biopsy of his penis, which revealed squamous cell cancer. He has appointment to followup with Dr. Castro on the . This morning, the patient was seen walking and actually finished walking around the lab very well, but he is significantly short of breath and tired. He was supposed to walk again as soon as he rested. OBJECTIVE: VITAL SIGNS: Today reveal blood pressure 144/65, pulse 87 to 92, respirations 20, O2 saturation 93% to 96% on room air, T-max 96.8. GENERAL: This is a well-developed, well-nourished, somewhat obese, male, in no apparent distress at this time. HEENT: Reveals normocephalic and nontraumatic cranium. Pupils equal, round, reactive. Extraocular movements intact. Nose and throat are slightly dry. NECK: Supple without masses, nodes, or bruits. CHEST: Clear to auscultation. No rales, rhonchi, or wheezes are heard. HEART: Reveals a regular rate and rhythm without murmurs, gallops, or rubs. ABDOMEN: Soft, nontender without organomegaly. Normal bowel sounds are noted. No rebound or guarding is noted. : Deferred. EXTREMITIES: Reveal no clubbing, cyanosis, or edema. Just generalized weakness. NEUROLOGIC: The patient is oriented x3. The patient continues to be noncompliant at times. ASSESSMENT: 1. Resolved colitis. 2. Hematuria. 3. Penile malignancy. 4. Hypertension. 5. Hyperlipidemia. 6. Multiple cerebrovascular accidents with multiple transient ischemic attacks in the past. 7. Peripheral vascular disease. 8. Insomnia. 9. Dementia. 10. Generalized weakness. 11. Noncompliance. PLAN: 1. Continue physical therapy and occupational therapy. 2. Continue DVT prophylaxis. 3. Continue decubitus precautions. 4. Continue stress ulcer prophylaxis. 5. Encourage the patient to stay out of bed as much as possible. 6. Encourage the patient to sit in a wheelchair or recliner or regular chair as much as possible. 7. Continue p.r.n. stool softeners. Job ID: [id number]
[2018-11-22] MEDS: Cilostazol 100 MG TAB PO SCH ×2 (08:26→16:20)
[2018-11-22] MEDS: Potassium Chloride 20 MEQ TAB PO SCH ×2 (08:27→17:45)
[2018-11-22] MEDS: Polyethylene Glycol 3350 17 GM Packet PO SCH (08:28)
[2018-11-22] MEDS: Famotidine 20 MG TAB PO SCH ×2 (08:28→20:15)
[2018-11-22] MEDS: Tamsulosin HCl 0.4 MG CAP PO SCH (08:28)
[2018-11-22] MEDS: Furosemide 40 MG TAB PO SCH (08:28)
--- NOTE | 2018-11-22 10:48 | PRG ---
DATE OF SERVICE: 11/22/2018 SUBJECTIVE: Mr. Zarate is a very pleasant 88-year-old male, who presented to [facility] emergency room with sepsis. He had significant urinary retention, had to have a suprapubic catheter placed. He is in ICU for several days. Dr. Castro also found a mass on his penis, which was biopsied and revealed squamous cell cancer. He has had a Handley catheter in because of his BPH. His catheter will stay in until he sees Dr. Castro on the . This morning, the patient did fairly well with his therapy, but he is still short of breath when he walks. OBJECTIVE: VITAL SIGNS: Today revealed blood pressure 127/58, pulse 94 to 97, respirations 18 to 20, O2 saturation 94% to 98% on room air, T-max is 98.3. GENERAL: This is a well-developed, well-nourished, slightly obese, male, in no apparent distress at this time. HEENT: Reveals normocephalic, nontraumatic cranium. Pupils are equal, round, and reactive. Extraocular movements are intact. Nose and throat are slightly dry. NECK: Supple without masses, nodes, or bruits. CHEST: Clear to auscultation. No rales, rhonchi, or wheezes are heard. HEART: Reveals a regular rate and rhythm without murmurs, gallops, or rubs. ABDOMEN: Soft, nontender. Normal bowel sounds noted in all 4 quadrants. No rebound or guarding is noted. : Deferred. EXTREMITIES: Revealed no clubbing, cyanosis, or edema. The patient has generalized weakness, but he is slowly improving. NEUROLOGIC: The patient is oriented x3. The patient is noncompliant with several times during therapy. ASSESSMENT: 1. Resolved colitis. 2. Generalized weakness. 3. Hematuria from jerking the Handley catheter today. 4. Penile malignancy. 5. Hypertension. 6. Hyperlipidemia. 7. Multiple cerebrovascular accidents and transient ischemic attacks in the past. 8. Peripheral vascular disease. 9. Insomnia. 10. Dementia. 11. Generalized weakness. 12. Noncompliance. PLAN: 1. The patient has reached maximum medical benefit, will be discharged tomorrow. 2. Continue physical therapy and occupational therapy today. 3. Train the daughter how to do. Continue PT and OT. 4. [facility] for home health PT and OT. 5. Continue decubitus precautions. 6. Continue stress ulcer prophylaxis. 7. Encourage the patient to stay out of bed as much as possible. 8. Encourage the patient to sit in wheelchair, recliner, or regular chair as much as possible. 9. Continue stool softeners only as p.r.n. 10. The patient will be discharged tomorrow. Job ID: [id number] MTDD
[2018-11-22] MEDS: NIFEdipine XL 30 MG TAB PO SCH (12:26)
[2018-11-22] MEDS: Lisinopril 20 MG TAB PO SCH (12:27)
[2018-11-22] MEDS: Donepezil HCl 10 MG TAB PO SCH (20:15)
[2018-11-22] MEDS: Atorvastatin Calcium 20 MG TAB PO SCH (20:15)
[2018-11-22] MEDS: Acetaminophen 500 MG TAB PO PRN (20:16)
[2018-11-23] MEDS: Cilostazol 100 MG TAB PO SCH (07:04)
[2018-11-23] MEDS: Potassium Chloride 20 MEQ TAB PO SCH (07:05)
[2018-11-23] MEDS: Famotidine 20 MG TAB PO SCH (09:18)
[2018-11-23] MEDS: Furosemide 40 MG TAB PO SCH (09:18)
[2018-11-23] MEDS: Polyethylene Glycol 3350 17 GM Packet PO SCH (09:21)
[2018-11-23] MEDS: Tamsulosin HCl 0.4 MG CAP PO SCH (09:25)
[2018-11-23] MEDS: NIFEdipine XL 30 MG TAB PO SCH (13:03)
[2018-11-23] MEDS: Lisinopril 20 MG TAB PO SCH (13:04)
[2018-11-23 13:05] VITALS: BP 139/65
[2018-11-23 13:12] VITALS: TEMP 98.3
--- NOTE | 2018-11-24 03:51 | DIS ---
DATE OF ADMISSION: 11/09/2018 DATE OF DISCHARGE: 11/23/2018 HISTORY OF PRESENT ILLNESS: Mr. Zarate is a very pleasant 88-year-old male. He presented to the emergency room at [facility] septic. He had urinary sepsis and urinary retention and had to have a suprapubic catheter placed by Dr. Castro. He unfortunately was in ICU for several days and became very weak. While he was in the hospital, Dr. Castro did find a mass on his penis and biopsy which revealed a recurrent squamous cell cancer. He had a Handley catheter placed because of his BPH and urinary retention. Schedule was obtained to see Dr. Castro on the . This morning, the patient has actually done very well. He has reached maximum medical benefit is pretty much. He states he wants to go home. He has no reason why he cannot today and his family will watch over him. OBJECTIVE: VITAL SIGNS: Today reveal blood pressure 139/65, pulse 98 to 105, which is little tachy more than usual, but he is little agitated. Respirations 18 to 20. O2 saturation 93% to 98% on room air. T-max 98.4. GENERAL: This is a well-developed, well-nourished, very pleasant male in no apparent distress at this time. HEENT: Normocephalic and nontraumatic cranium. Pupils are equally round, reactive. Extraocular movements intact. Nose and throat are slightly dry. NECK: Supple without masses, nodes, or bruits. CHEST: Clear to auscultation. No rales, rhonchi, wheezes are heard. HEART: Reveals a regular rate and rhythm without murmurs, gallops, or rubs. ABDOMEN: Soft, nontender without organomegaly. Normal bowel sounds are noted. No rebound or guarding is noted. : Deferred. EXTREMITIES: Reveal no clubbing, cyanosis, or edema. NEUROLOGIC: The patient is oriented x3. The patient has been noncompliant several times during his therapy. He is ready for discharge at this time. ASSESSMENT: 1. Resolved colitis. 2. Generalized weakness. 3. Hematuria from jerking his Handley catheter out. Dr. Castro was contacted by the nurse and we will not have any changes there. He is to see Dr. Castro on November 28. 4. Penile malignancy. 5. Hypertension. 6. Hyperlipidemia. 7. Multiple cerebrovascular accidents and transient ischemic attacks in the past. 8. Peripheral vascular disease. 9. Insomnia. 10. Dementia. 11. Generalized weakness. 12. Noncompliance. PLAN: 1. The patient is discharged at this time. 2. The patient will continue outpatient home physical therapy, I think they prefer [facility]. 3. The patient's daughter has been trained how to care for his Handley catheter. 4. Continue decubitus precautions. 5. Continue stress ulcer precautions. DISCHARGE MEDICATIONS: The patient's discharge medications will include the following; 1. Lipitor 20 mg at bedtime. 2. Pletal 50 mg twice a day. 3. Vitamin B12 shot 1000 mg every 30 days. 4. Donepezil 10 mg at bedtime. 5. Pepcid 20 mg twice a day. 6. Lasix 40 mg daily. 7. Lisinopril 20 mg daily. 8. Procardia XL 60 mg once a day. 9. Protonix 40 mg twice a day. 10. MiraLAX 17 g daily p.r.n. 11. K-Dur 40 mEq twice a day with meals. 12. Flomax 0.4 mg b.i.d. FOLLOW UP: The patient will follow up with me about in 10 days. The patient needs to have lab work done at that visit, so we can recheck his electrolytes. The patient will be seen by Dr. Castro on November 28. Job ID: [id number]
== END 2018-11-23 14:15 | disposition home health service (06) | DRG 392 ==
LOC: NAV ACUTE 14:51
PROVIDERS: ADMIT Internal Medicine; ATTEND Internal Medicine
DX: K52.9 Noninfective gastroenteritis and colitis, unspecified (principal); E78.5 Hyperlipidemia, unspecified; F03.90 Unspecified dementia, unspecified severity, without behavioral disturbance, psychotic disturbance, mood disturbance, and anxiety; I10 Essential (primary) hypertension; E11.51 Type 2 diabetes mellitus with diabetic peripheral angiopathy without gangrene; N40.1 Benign prostatic hyperplasia with lower urinary tract symptoms; C60.9 Malignant neoplasm of penis, unspecified; K56.41 Fecal impaction; R33.8 Other retention of urine; G47.00 Insomnia, unspecified; R31.9 Hematuria, unspecified; Z90.79 Acquired absence of other genital organ(s); Z86.73 Personal history of transient ischemic attack (TIA), and cerebral infarction without residual deficits; Z91.19 Patient's noncompliance with other medical treatment and regimen
CPT/HCPCS: 80048; 80053; 83036; 83880; 85025; G8978-GP-CJ; G8979-GP-CI; J1650

== ENCOUNTER 2019-01-06 21:43 | Emergency (ER) | payer MEDICARE ==
--- NOTE | 2019-01-06 22:49 | RAD ---
CHEST TWO VIEW: 01/06/19 HISTORY: Cough. COMPARISON: Radiograph 11/05/18. FINDINGS: Lungs without focal confluent air space consolidation, pneumothorax or effusion. Mild increased inter stitial markings. Mild blunting of the right lateral costophrenic sulcus is similar. No acute osseous abnormality. IMPRESSION: Low grade interstitial markings can be seen with viral infectious process. POS: [facility]
[2019-01-06] MEDS ORDERED: cloNIDine 0.1 MG TAB ONE (22:52)
== END 2019-01-06 23:03 | disposition home or self-care (01) ==
LOC: NAV ERS 21:43
DX: J20.8 Acute bronchitis due to other specified organisms (principal); I10 Essential (primary) hypertension; G30.9 Alzheimer's disease, unspecified; F02.80 Dementia in other diseases classified elsewhere, unspecified severity, without behavioral disturbance, psychotic disturbance, mood disturbance, and anxiety; Z86.73 Personal history of transient ischemic attack (TIA), and cerebral infarction without residual deficits; Z79.899 Other long term (current) drug therapy
CPT/HCPCS: 71046; 87804

== ENCOUNTER 2019-03-07 16:48 | Outpatient (CLI) | payer MEDICARE ==
[2019-03-07 18:27] LABS: Anion Gap 15 mmol/L (10-20); BUN (Urea Nitrogen) 24 mg/dL (8.4-25.7); Calc. Creatinine Clearance 0 mL/min (70-130); Calcium 7.8 mg/dL (7.8-10.44); Carbon Dioxide 21 mmol/L (23-31); Chloride 104 mmol/L (98-107); Estimated GFR-MDRD 42; Glucose 98 mg/dL (83-110); Potassium 3.2 mmol/L (3.5-5.1); Sodium 137 mmol/L (136-145)
== END 2019-03-07 16:49 | disposition home or self-care (01) ==
LOC: NAV LAB 16:48
PROVIDERS: ATTEND Family Medicine
DX: R60.9 Edema, unspecified (principal); Z79.899 Other long term (current) drug therapy
CPT/HCPCS: 36415; 80048; 83880